=== PATIENT | female | born 1945 | race Caucasian/White ===

== ENCOUNTER 2019-10-20 12:54 | Outpatient (CLI) | payer MEDICARE, SELFPAY ==
--- NOTE | ~2019-10-20 | XR_ITS ---
EXAMINATION: XR abdomen/kub 1V INDICATION: Left-sided kidney stone TECHNIQUE: Supine view of the abdomen is obtained COMPARISON: 12/05/2017 FINDINGS: A pain pump projects over the left kidney obscuring evaluation for stones. No right nephrol ithiasis is identified. No stones are seen along the expected courses of the ureters or within the bl adder. A left pelvic phlebolith is noted. The bowel gas pattern is normal. There is mild osteoarthrit is of the hips. IMPRESSION: 1. Incomplete evaluation for left kidney stone due to overlying pain pump. No urolithiasis identified . Reviewed, dictated and finalized at location A. IMPRESSION: 1. Incomplete evaluation for left kidney stone due to overlying pain pump. No u rolithiasis identified.
== END 2019-10-20 12:55 | disposition home or self-care (01) ==
LOC: ANHIMG 13:02
PROVIDERS: PCP Family Medicine; Visit Provider Urology
DX: N20.0 Calculus of kidney (principal)
CPT/HCPCS: 74018

== ENCOUNTER 2020-09-08 09:00 | Outpatient (CLI) | payer MEDICARE, SELFPAY ==
--- NOTE | ~2020-09-08 | CT_ITS ---
EXAMINATION: CT lumbar spine wo [facility] EXAM DATE: 09/08/2020 09:27 INDICATION: Back pain/ radiculopathy . Coccygeal pain. TECHNIQUE: Spiral CT of the lumbar spine was performed without contrast. Axial, coronal and sagittal images lumbar spine were reviewed. The dose-length product (DLP) for this examination was 494.01 mG y-cm. The exposure was tailored according to patient size (auto mA exposure control), and iterative reconstruction (ASIR) was used as additional dose reduction technique. Correlation is made to lumbar MRI examination 2018. FINDINGS: There is pain pump with tip entering at L2-3, collimated off the top of the study. There is mild thoracolumbar levoscoliosis. Moderate to severe loss of the disc height L1-2, L2-3 and L5-S1 mild at the other lumbar levels. There is a subacute right-sided sacral all of fracture, probably ins ufficiency fracture. Some sclerosis indicating healing response. There is 2 mm retrolisthesis L2 on L 3. Cholecystectomy clips. Level by level evaluation: T12-L1: Disc does not extend beyond the endplate margin. Facet arthropathy: Mild left. Neural foraminal stenosis: No stenosis. Central canal stenosis: No stenosis. L1-L2: There is a mild diffuse disc bulge. Facet arthropathy: Minimal bilateral. Neural foraminal stenosis: No stenosis. Central canal stenosis: No stenosis. L2-L3: There is a mild to moderate diffuse disc bulge. Facet arthropathy: Mild. Neural foraminal stenosis: Mild bilateral. Central canal stenosis: Mild. L3-L4: There is a mild to moderate diffuse disc bulge. Facet arthropathy: Mild to moderate. Neural foraminal stenosis: Mild bilateral. Central canal stenosis: Mild. L4-L5: There is a moderate diffuse disc bulge. Facet arthropathy: Moderate to severe. Neural foraminal stenosis: Mild to moderate bilateral. Central canal stenosis: Mild to moderate. L5-S1: There is a mild to moderate diffuse disc bulge. Facet arthropathy: Moderate to severe. Neural foraminal stenosis: Moderate left, mild to moderate right. Central canal stenosis: Mild. IMPRESSION: 1. Subacute right sacral nondisplaced fracture probably insufficiency fracture. 2. Moderate to severe lower lumbar facet arthropathy. Spondylosis as above. Reviewed, dictated and finalized at location B. IMPRESSION: 1. Subacute right sacral nondisplaced fracture probably insufficiency fracture . 2. Moderate to severe lower lumbar facet arthropathy. Spondylosis as above.
== END 2020-09-08 09:01 | disposition home or self-care (01) ==
PROVIDERS: PCP Family Medicine
DX: M53.3 Sacrococcygeal disorders, not elsewhere classified (principal); M47.896 Other spondylosis, lumbar region
CPT/HCPCS: 72131

== ENCOUNTER 2021-01-24 13:01 | Emergency (ER) | payer MEDICARE, SELFPAY ==
[2021-01-24] VITALS (25 sets, daily range): BP systolic 114–158; BP diastolic 51–92; PULSE 67–85; RESP 12–25; TEMP 37.2; O2SAT 92–99
--- NOTE | ~2021-01-24 | CT_ITS ---
EXAMINATION: CT brain wo [facility] EXAM DATE: 01/24/2021 14:20 INDICATION: Nausea vomiting, altered mental status. TECHNIQUE: Spiral CT of the head was performed without contrast. Axial, coronal and sagittal images were reviewed. The dose-length product (DLP) for this examination was 605.33 mGy-cm. The exposure w as tailored according to patient size, and iterative reconstruction (ASIR) was used as additional dos e reduction technique. There is no prior study for comparison. FINDINGS: There is no acute intraparenchymal hemorrhage. No evidence of intraparenchymal brain mass lesion. No evidence of acute infarction. Please note that initial head CT has limited sensitivity f or small or acute infarctions. There is moderate periventricular and subcortical hypodensity, nonspec ific but probably related to small vessel ischemic disease. There is moderate prominence of the sul ci and ventricles related to cerebral atrophy. There is intracranial carotid arteriosclerosis. The re are no extra-axial collections. There is no mass effect or midline shift. The orbits are unremar kable. Soft tissue is unremarkable. The visualized sinuses and mastoid air cells are well aerated. IMPRESSION: 1. No acute intracranial findings. 2. Chronic age related findings. Reviewed, dictated and finalized at location A. E WORKER
--- NOTE | 2021-01-24 13:08 | ECG_ITS ---
Measurements Intervals [place] Rate: 70 P: 84 CA: 173 QRS: 53 QRSD: 84 T: 43 QT: 343 QTc: 371 Interpretive Statements SINUS RHYTHM DELAYED PRECORDIAL R/S TRANSITION BORDERLINE T WAVE ABNORMALITY- INFERIOR LEADS BASELINE ARTIFACT- II, III, AVF, V3-V6 BORDERLINE ECG Electronically Signed On 01-24-2021 13:45:34 [employer] REPAIR[employer] by Lopez Silveira D.O.
--- NOTE | 2021-01-24 13:30 | PC.NURSE ---
Pt's spouse says pt has severe chronic pain. He reports pt always has some confusion but she is normally much more alert than she is today. He reports pt was complaining of severe pain this morning. She refused her gabapentin and has not taken it in 12-24 hours. He does reports she was agreeable to taking her medical marijuana this morning. Pt is A&O x1. Will answer questions and follow commands. Pt denies recent fall or injury.
[2021-01-24] MEDS: ONDANSETRON INJ 4 MG/2 ML VIAL IV PUSH (14:03)
[2021-01-24] MEDS: SODIUM CHLORIDE 0.9% IV 1,000 ML 999 ML IV CONT (14:03)
[2021-01-24 14:08] LABS: Basophils Percent Auto 0.3 % (0.2-1.2); Eosinophils Percent Auto 0.1 % (0-4.4); Hematocrit 43.7 % (37.0-47.0); Hemoglobin 14.7 g/dL (12.0-15.0); Immature Granulocyte Absolute 0.03 K/mm3 (0.00-0.031); Immature Granulocyte Percent A 0.3 % (0-0.5); Lymphocytes Absolute Auto 0.83 K/mm3 (0.9-3.2); Lymphocytes Percent Auto 9.2 % (18.3-44.2); Mean Corpuscular HGB Conc 33.6 g/dl (32-36); Mean Corpuscular Hemoglobin 30.6 pg (26-34); Mean Corpuscular Volume 90.9 fl (80-100); Monocytes Absolute Auto 0.3 K/mm3 (0.1-0.6); Monocytes Percent Auto 3.5 % (2.6-8.5); Neutrophils Absolute Auto 7.8 K/mm3 (1.3-6.7); Neutrophils Percent Auto 86.6 % (45.5-73.1); Platelet Count Result 301 k/mm3 (150-375); Red Blood Count 4.81 M/mm3 (4.2-5.4); Red Cell Distribution Width 12.8 % (11.5-14.5)
--- NOTE | 2021-01-24 14:17 | PC.NURSE ---
Pt to radiology.
--- NOTE | 2021-01-24 14:20 | ED.GENADULT ---
HPI - General Adult General Chief complaint: Altered Mental Status Stated complaint: Altered Mental Status Time Seen by Provider: 01/24/21 13:19 Source: patient and family History of Present Illness HPI narrative: Patient is a 75 y/o female brought in for altered mental status and vomiting. states that patient kept repeating same thing earlier today. She also vomited 3 times today. She is currently awake and alert. She complains of chronic back pain. She has a pain pump for her chronic pain. reports that she did not take her Gabapentin today. Related Data Home Medications Medication Instructions Recorded Confirmed cyanocobalamin (vitamin B-12) 1,000 mcg PO DAILY 04/02/19 01/10/21 1,000 mcg tablet vitamin E (dl, acetate) 180 mg 400 unit PO DAILY 04/02/19 01/10/21 (400 unit) capsule Dilaudid CONTINUOUS EPIDURAL 08/06/19 01/10/21 clonidine CONTINUOUS EPIDURAL 08/06/19 01/10/21 cholecalciferol (vitamin D3) 50 2,000 unit PO DAILY cap 08/04/20 01/10/21 mcg (2,000 unit) capsule Allergies Allergy/AdvReac Type Severity Reaction Status Date / Time No Known Allergies Allergy Verified 01/24/21 13:13 Review of Systems Constitutional: Constitutional: Denies chills, Denies fever(s), Denies headache(s) and Denies weakness Eyes: Eyes: Denies blurry vision ENT: Denies headache(s) and Denies neck pain Cardiovascular: Cardiovascular: Denies chest pain and Denies dyspnea Respiratory: Respiratory: Denies cough and Denies dyspnea Gastrointestinal: Gastrointestinal: Denies abdominal pain, Denies diarrhea, Reports nausea and Reports vomiting Genitourinary: Genitourinary: Denies hematuria and Denies dysuria Musculoskeletal: Musculoskeletal: Reports back pain and Denies neck pain Neurologic: Denies headache(s) and Denies weakness [facility] Past Medical History Medical History Abnormal fasting glucose Arthritis BMI 26.0-26.9,adult Chronic anxiety COPD (chronic obstructive pulmonary disease) Depression GERD (gastroesophageal reflux disease) Impaired glucose metabolism Insomnia Memory deficit Tardive dyskinesia Vitamin B12 deficiency anemia Vitamin D deficiency, unspecified Surgical History Surgical History H/O neck surgery Hx of cholecystectomy Previous back surgery Family History Family History Father Family history of heart disease in male family member before age 55 Mother Family history of heart disease in male family member before age 55 Social History Social History Smoking status: Former smoker Alcohol intake: never Substance use: never Substance use type: does not use Gender identity (if verbalized by the patient): Female Exam Const: General: no acute distress and well developed Orientation/consciousness: oriented to person, oriented to place, oriented to time and patient oriented x3 HENMT: Head: normocephalic Ears: external ears normal General nose exam: Normal external nose present Eyes: General: appearance normal, both eyes and all related structures Conjunctivae: conjunctivae normal Neck: Neck: normal visual inspection and full ROM Chest: Chest palpation & inspection: normal inspection of the chest and no tenderness Resp: Effort & Inspection: normal respiratory effort Auscultation: clear to auscultation bilaterally Cardio: Rate: regular rate Rhythm: regular rhythm GI: GI Palp: No abdominal tenderness and Yes Soft to palpation Skin: General skin exam: normal color and turgor normal Neuro: General: oriented to person, oriented to place, oriented to time and patient oriented x3 Cognition (Neuro): normal cognition Extrem: General: normal to inspection, full ROM and no pedal edema Psych: Appearance: grossly normal Mental Status: mental status grossl
[2021-01-24 14:21] LABS: Alanine Aminotransferase 12 U/L (4-35); Albumin Level 4.2 g/dL (3.5-5.1); Alkaline Phosphatase 116 U/L (38-126); Anion Gap 7 mmol/L (8-16); Aspartate Amino Transferase 21 U/L (14-36); Bilirubin,Total 0.4 mg/dL (0.2-1.3); Blood Urea Nitrogen 8 mg/dL (7-17); Calcium 9.3 mg/dL (8.4-10.2); Carbon Dioxide 27 mmol/L (22-30); Chloride 102 mmol/L (98-107); Estimated Glomerular Filt Rate > 60; Glucose 144 mg/dL (65-110); Sodium 136 mmol/L (137-145)
--- NOTE | 2021-01-24 14:43 | PC.NURSE ---
Pt ambulatory to and from restroom. Pt unable to provide urine sample at this time.
--- NOTE | 2021-01-24 14:51 | PC.NURSE ---
Pt more alert and answering questions more appropriately. Disoriented to time. No complaints at this time.
--- NOTE | 2021-01-24 15:30 | PC.NURSE ---
Pt's at nurses station requesting pain medication for pt reporting she is in agonizing pain . RN went to bedside to assess pt. Pt unable to report being in any pain other than discomfort of straight catheterization she is currently undergoing. Dr. Haley made aware.
[2021-01-24 15:45] LABS: Add Urine Microscopic? YES; Appearance Urine Clear (Clear); Bilirubin Urine Negative (Negative); Blood Urine 1+ (Negative); Color Urine Straw (Yellow); Glucose Urine UA Negative (Negative); Ketones Urine Trace mg/dL (Negative); Leukocyte Esterase Ur Negative LEU/UL (Negative); Mucus Urine Rare /lpf; Nitrate Urine Negative (Negative); Protein Urine Negative (Negative); Specific Grav Ur 1.008 (1.001-1.035); Squamous Epithelial Cell Urine Rare /hpf (Few); Urobilinogen Urine Negative mg/dL (<2.0); WBC Urine 0-3 /hpf
--- NOTE | 2021-01-24 17:04 | PC.NURSE ---
Pt resting on stretcher. Family member at bedside. Awaiting further orders or disposition. Lab analyzer for urine drug screen down at this time. Dr. Tera carmen.
[2021-01-24 17:55] LABS: Barbiturate Screen Urine Negative (Negative); Benzodiazepines Screen Urine Negative (Negative)
[2021-01-24 17:56] LABS: Amphetamine Screen Urine Negative (Negative); Cannabinoid Screen Urine Positive (Negative); Cocaine Screen Urine Negative (Negative); Opiate Screen Urine Negative (Negative); Phencyclidine Screen Urine Negative (Negative)
[2021-01-24 18:16] LABS: Methadone Screen Urine Negative (Negative)
== END 2021-01-24 18:19 | disposition home or self-care (01) ==
PROVIDERS: Emergency Provider Emergency Medicine; PCP Family Medicine
DX: R41.82 Altered mental status, unspecified (principal); R11.2 Nausea with vomiting, unspecified; J44.9 Chronic obstructive pulmonary disease, unspecified; K21.9 Gastro-esophageal reflux disease without esophagitis; M19.90 Unspecified osteoarthritis, unspecified site; F32.9 Major depressive disorder, single episode, unspecified; E55.9 Vitamin D deficiency, unspecified; D51.9 Vitamin B12 deficiency anemia, unspecified; Z87.891 Personal history of nicotine dependence; Z79.899 Other long term (current) drug therapy
CPT/HCPCS: 36415; 51701; 70450; 80053; 80307; 81001; 85025; 93005; 96361; 96374; 99284; J2405; J7030

== ENCOUNTER 2023-09-09 10:17 | Inpatient (IN) | payer MEDICARE, SELFPAY ==
[2023-09-09] VITALS (24 sets, daily range): BP systolic 99–132; BP diastolic 46–68; PULSE 83–117; RESP 20–36; TEMP 36.2–37.7; O2SAT 84–100; BMI 22.8
--- NOTE | ~2023-09-09 | XR_ITS ---
MODIFIED ESOPHAGRAM HISTORY: Dysphagia. TECHNIQUE: Modified barium esophagram was performed on 09/10/2023. I administered fluoroscopy and perfo rmed the exam with speech pathologist. Patient was seated for lateral fluoroscopic imaging for inges tion of thin liquids, pudding, solids and quantified amounts, followed by thin liquids in uncontrolle d amounts. This was recorded on tape. A single fluoroscopic spot image was also recorded. The DAP for this procedure was 2.331 Gycm2. The amount of fluoroscopy time used during this procedure was 2.8 mi nutes. FINDINGS: Oral stage: Adequate function. Pharyngeal stage: Reduced laryngeal elevation and tongue base retraction. There is vallecular residue . There was laryngeal penetration with uncontrolled thin liquids. No aspiration. Cervical/esophageal stage: Adequate function. IMPRESSION: Pharyngeal dysphagia including laryngeal penetration with uncontrolled thin liquids witho ut aspiration. Please correlate with speech pathologist findings and specific feeding recommendation s. Reviewed, dictated and finalized at location A. IMPRESSION: Pharyngeal dysphagia including laryngeal penetration with uncontrol led thin liquids without aspiration. Please correlate with speech pathologist findings and specific feeding recommendations.
--- NOTE | ~2023-09-09 | XR_ITS ---
EXAMINATION: XR chest 2V DATE: 09/09/2023 11:07 INDICATION: Dyspnea. Right-sided weakness post stroke. TECHNIQUE: frontal view of the chest was obtained. COMPARISON: Chest radiograph dated 05/08/2016 FINDINGS: Indistinct interstitial opacities in the dependent lower lungs with more prominent on the right. No p leural effusion or pneumothorax. Heart size is normal. Bilateral breast implants with peripheral caps ular calcifications. Spinal stimulator leads extend cephalad along the posterior aspect of the centra l canal at the mid to lower thoracic spine with distal tip at the level of T8 and T9. Cholecystectomy clips in right upper quadrant. Pain pump projects over the anterior left upper quadrant with cathete r extending posteriorly to the region of the upper lumbar spine and beyond the inferior margin of the [id number]. IMPRESSION: 1. Dependent interstitial opacities in the bilateral lower lungs, right greater than left which could represent mild pulmonary edema, atelectasis or pneumonia. Reviewed, dictated and finalized at location A. IMPRESSION: 1. Dependent interstitial opacities in the bilateral lower lungs, right greater than left which could represent mild pulmonary edema, atelectasis or pneumonia .
--- NOTE | 2023-09-09 10:24 | ECG_ITS ---
Test Date: 2023-09-09 10:30:53 Measurements Intervals [place] Rate: 112 P: 80 RI: 139 QRS: 20 QRSD: 86 T: 66 QT: 302 QTc: 413 Interpretive Statements SINUS TACHYCARDIA POSSIBLE LEFT ATRIAL ENLARGEMENT DELAYED PRECORDIAL R/S TRANSITION CONSIDER INFERIOR INFARCT, AGE INDETERMINATE BORDERLINE T WAVE ABNORMALITY- ANTERIOR LEADS BASELINE ARTIFACT- II, AVR, AVL, AVF ABNORMAL ECG No previous ECG available for comparison Electronically Signed On 09-09-2023 15:06:15 CDT by Lopez Silveira D.O.
[2023-09-09 11:00] LABS: Basophils Absolute Auto 0.1 K/mm3 (0.0-0.1); Basophils Percent Auto 0.4 % (0.2-1.2); Eosinophils Absolute Auto 0.1 K/mm3 (0-0.3); Eosinophils Percent Auto 0.6 % (0-4.4); Hemoglobin 13.7 g/dL (12.0-15.0); Immature Granulocyte Absolute 0.08 K/mm3 (0.00-0.031); Immature Granulocyte Percent A 0.4 % (0-0.5); Lymphocytes Absolute Auto 1.25 K/mm3 (0.9-3.2); Mean Corpuscular HGB Conc 32.6 g/dl (32-36); Mean Corpuscular Hemoglobin 29.5 pg (26-34); Mean Corpuscular Volume 90.3 fl (80-100); Mean Platelet Volume 9.3 fl (7.4-10.4); Monocytes Absolute Auto 1.1 K/mm3 (0.1-0.6); Monocytes Percent Auto 5.9 % (2.6-8.5); Neutrophils Absolute Auto 15.3 K/mm3 (1.3-6.7); Neutrophils Percent Auto 85.7 % (45.5-73.1); Platelet Count Result 339 k/mm3 (150-375); Red Blood Count 4.65 M/mm3 (4.2-5.4); Red Cell Distribution Width 13.6 % (11.5-14.5); White Blood Count 17.9 K/mm3 (4.5-10.0)
[2023-09-09 11:12] LABS: Alanine Aminotransferase 14 U/L (6-35); Albumin Level 4.3 g/dL (3.5-5.1); Alkaline Phosphatase 117 U/L (38-126); Anion Gap 13 mmol/L (4-12); Aspartate Amino Transferase 21 U/L (14-36); Bilirubin,Total 1.3 mg/dL (0.2-1.3); Blood Urea Nitrogen 13 mg/dL (7-17); Calcium 8.9 mg/dL (8.4-10.2); Carbon Dioxide 28 mmol/L (22-30); Chloride 96 mmol/L (98-107); Estimated Glomerular Filt Rate > 60; Glucose 119 mg/dL (65-110); Lactic Acid Reflex 1.5 mmol/L (0.7-2.0); Sodium 137 mmol/L (137-145)
[2023-09-09 11:33] LABS: Carboxyhemoglobin 0.7 % THb (0-2.0); Fractional Inspired Oxygen 80 %; HCO3 ABG 24.1 mEq/l (22.0-26.0); Methemoglobin ABG 0.4 %THb (0-1.5); Oxygen Content ABG 20.6 %vol (16.0-22.0); Oxygen Saturation ABG 99.4 % (95.0-100.0); Oxyhemoglobin 98.4 % THb (90.0-100.0); PCO2 ABG 37.9 mmHg (35.0-45.0); PO2 ABG 206.6 mmHg (80.0-100.0); PO2 FiO2 Ratio Arterial Blood 2.58 %; Reduced Hemoglobin 0.5 %THb (0-5.0); Total Hemoglobin 14.6 g/dL (12.0-18.0); pH ABG 7.422 (7.350-7.450)
[2023-09-09 11:37] LABS: Device NASAL CANNULA; Modified Allen's Test Pass; Site Drawn LEFT RADIAL
[2023-09-09] MEDS: AZITHROMYCIN 500 MG/NS 250 ML 500 MG/250 ML BAG 250 MG IVPB (11:58)
--- NOTE | 2023-09-09 12:50 | ED_ITS ---
HPI - SOB/Dyspnea General Chief Complaint: Shortness of Breath/Dyspnea Stated Complaint: fever, cough - productive Time Seen by Provider: 09/09/23 10:23 History of Present Illness HPI Narrative: Patient is 78-year-old female with history of CVA with expressive aphasia who presents to the ER with concerns for pneumonia. Patient with new fever and cough. She is found be hypoxic for EMS. She is requiring supplemental oxygen. Patient unable to provide history. Related Data Home Medications Medication Instructions Recorded Confirmed cyanocobalamin (vitamin B-12) 1,000 mcg PO DAILY 04/02/19 09/09/23 1,000 mcg tablet (Vitamin B-12) vitamin E (dl, acetate) 180 mg 400 unit PO DAILY 04/02/19 09/09/23 (400 unit) capsule Dilaudid continuous epidural 08/06/19 07/30/23 clonidine continuous epidural 08/06/19 07/30/23 cholecalciferol (vitamin D3) 50 2,000 unit PO DAILY 08/04/20 09/09/23 mcg (2,000 unit) capsule famotidine 20 mg tablet 20 mg PO QHS 07/30/23 09/09/23 alprazolam 0.25 mg tablet (Xanax) 25 mg PO DAILY PRN anxiety 09/09/23 09/09/23 aripiprazole 10 mg tablet 10 mg PO HS 09/09/23 09/09/23 oxycodone 5 mg tablet 5 mg PO Q6H PRN pain 09/09/23 09/09/23 Allergies Allergy/AdvReac Type Severity Reaction Status Date / Time No Known Allergies Allergy Verified 08/09/22 10:51 Review of Systems Review of Systems: ROS unobtainable: Yes unobtainable due to mental status [facility] Past Medical History Medical History Abnormal fasting glucose Glucose 96 with hemoglobin A1c 5.6 on 12/13/2021. Arthritis At high risk for falls At moderate risk for fall (~01/15/23) BMI 23.0-23.9, adult BMI 24.0-24.9, adult BMI 25.0-25.9,adult BMI 26.0-26.9,adult Chronic anxiety Chronic constipation Chronic diarrhea COPD (chronic obstructive pulmonary disease) COVID-19 (01/13/22) fully vaccinated, tested positive 01/14/2022. 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 Impaired glucose metabolism Insomnia Memory deficit cognitive screening 03/0212/15/2022. Overweight (BMI 25.0-29.9) Pain of both breasts Right leg pain Tardive dyskinesia UTI (urinary tract infection) Vitamin B12 deficiency anemia Level greater than 2000 with hemoglobin 13.6 on 12/13/2021. Vitamin D deficiency, unspecified Surgical History Surgical History H/O neck surgery Hx of cholecystectomy Previous back surgery Family History Family History Father Family history of heart disease in male family member before age 55 Mother Family history of heart disease in male family member before age 55 Social History Social History Smoking packs per day: 1 Smoking cigarettes per day: 20.0 Years smoked: 55 Smoking pack-years: 55.00 Smoking status: Former smoker Tobacco type: cigarettes Alcohol intake: never Substance use: never Substance use type: does not use Lack of Transportation: No Lack of Food: Never True Current Housing: I Have Housing Concerned About Future Housing: No Difficulty Paying Gas/Electric Bills: No Difficulty Paying for Meds: No Currently Unemployed: No Education: Associate Degree Difficulty w/ Childcare or Family Care: No Living arrangements: with family Occupation/Education: retired Gender identity (if verbalized by the patient): Female Spiritual care concerns: No Exam Narrative: GENERAL: Chronically ill-appearing, well-nourished, and in no acute distress. HEAD: Normocephalic, atraumatic. ENT: Mucous membranes moist. CHEST: Clear to auscultation. No respiratory distress. HEART: Tachycardic and regular. Normal peripheral pulses. ABDOMEN: Soft, nontender, nondistended. EXTREMITIES: Normal range of motion. No edema. SKIN: Warm, dry, no rash. NEURO: Awake and alert. PSYCH: Normal mood and affect. Course Course Emergency Course: patients family has been informed of results and treatment plan. Admit to hospitalist service. IV antibiotics started. Patient on 5 L of oxygen. Vital Signs Vital signs: Vital Signs Temperature 99.8 F H 09/09/23 10:15 Pulse Rate 117 H 09/09/23 10:15 Respiratory Rate 22 H 09/09/23 10:15 Blood Pressure 116/62 09/09/23 10:15 Pulse Oximetry 98 09/09/23 10:15 Oxygen Delivery Room Air 09/09/23 10:15 Temperature 97.1 F L 09/09/23 16:00 Pulse Rate 92 09/09/23 18:00 Respiratory Rate 20 09/09/23 16:14 Blood Pressure 104/48 L 09/09/23 16:00 Pulse Oximetry 96 09/09/23 16:00 Oxygen Delivery Nasal Cannula 09/09/23 16:00 Oxygen Flow Rate 5 09/09/23 16:00 MDM - SOB/Dyspnea Lab Data 09/09/23 10:50 09/09/23 10:50 Labs: Lab Results 09/09/23 09/09/23 Range/Units 10:50 11:08 WBC 17.9 H (4.5-10.0) K/mm3 RBC 4.65 (4.2-5.4) M/mm3 Hgb 13.7 (12.0-15.0) g/dL Hct 42.0 (37.0-47.0) % MCV 90.3 (80-100) fl MCH 29.5 (26-34) pg MCHC 32.6 (32-36) g/dl RDW 13.6 (11.5-14.5) % Plt Count 339 (150-375) k/mm3 MPV 9.3 (7.4-10.4) fl Immature Gran % (Auto) 0.4 (0-0.5) % Neut % (Auto) 85.7 H (45.5-73.1) % Lymph % (Auto) 7.0 L (18.3-44.2) % [place] % (Auto) 5.9 (2.6-8.5) % Eos % (Auto) 0.6 (0-4.4) % Baso % (Auto) 0.4 (0.2-1.2) % Lymph # (Auto) 1.25 (0.9-3.2) K/mm3 [place] # (Auto) 1.1 H (0.1-0.6) K/mm3 Eos # (Auto) 0.1 (0-0.3) K/mm3 Baso # (Auto) 0.1 (0.0-0.1) K/mm3 Abs Immat Gran (auto) 0.08 H (0.00-0.031) K/mm3 Absolute Neuts (auto) 15.3 H (1.3-6.7) K/mm3 Absolute Nucleated RBC 0.000 (0.0-0.012) K/mm3 Nucleated RBC % 0.0 (0.0-0.2) % Methemoglobin 0.4 (0-1.5) %THb Sodium 137 (137-145) mmol/L Potassium 4.0 (3.4-5.0) mmol/L Chloride 96 L (98-107) mmol/L Carbon Dioxide 28 (22-30) mmol/L Anion Gap 13 H (4-12) mmol/L BUN 13 D (7-17) mg/dL Creatinine 0.80 (0.7-1.0) mg/dL Estim Creat Clear Calc Not Reportable Estimated GFR > 60 (59 - ) Glucose 119 H (65-110) mg/dL Lactic Acid 1.5 (0.7-2.0) mmol/L Calcium 8.9 (8.4-10.2) mg/dL Total Bilirubin 1.3 (0.2-1.3) mg/dL AST 21 (14-36) U/L ALT 14 (6-35) U/L Alkaline Phosphatase 117 (38-126) U/L Total Protein 8.0 (6.3-8.2) g/dL Albumin 4.3 (3.5-5.1) g/dL ABG Data ABG results: 09/09/23 11:08 Puncture Site Left radial ABG pH 7.422 ABG pCO2 37.9 ABG pO2 206.6 H ABG PO2/FiO2 Ratio 2.58 ABG HCO3 24.1 ABG O2 Saturation 99.4 ABG O2 Content 20.6 ABG Base Excess 0.0 A-a Gradient 324.0 Oxyhemoglobin 98.4 Carboxyhemoglobin 0.7 Reduced Hemoglobin 0.5 Total Hemoglobin 14.6 O2 Delivery Device Nasal cannula O2 Liters/Min 15.0 FiO2 80 Imaging Data Radiologist's impression: ITS Impressions Chest X-Ray 09/09/23 11:14 IMPRESSION: 1. Dependent interstitial opacities in the bilateral lower lungs, right greater than left which could represent mild pulmonary edema, atelectasis or pneumonia. Discharge Plan Discharge Clinical Impression: Pneumonia, Hypoxia Patient Disposition: Still a Patient Condition: Stable
[2023-09-09] MEDS: SODIUM CHLORIDE 0.9% IV 1,000 ML 125 ML IV CONT ×2 (13:43→22:07)
--- NOTE | 2023-09-09 14:19 | ADMGEN ---
This patient, Kimberlyn Galindo, was admitted to IMU Room 231-01. Patient/family oriented to hospital policies and general routines including ID bracelet, bed and alarms, visiting hours, pain management, procedures, bathroom and other care routines, personal items, smoking policy, room service/diet, and visiting hours. Information on how to activate the Rapid Response Team has been discussed. Patient/Family are encouraged to report perceived risks to care and to ask questions if they do not understand what they are told or what they should do.
[2023-09-09] MEDS: IPRATROPIUM 0.5 MG/ALBUTEROL SULFATE 2.5 MG AMPUL.NEB 3 ML INHALATION ×2 (16:02→21:00)
[2023-09-09] MEDS: HYDROcodone/acetaminophen (*CRX) 5-325 MG TABLET 1 TAB PO (17:01)
--- NOTE | 2023-09-09 17:42 | P.HP_ITS ---
H&P: HPI History of Present Illness Date/Time: 09/09/23 17:42 Chief Complaint: Shortness of breath/dyspnea Narrative: This is a 78-year-old female with a significant past medical history of anxiety, COPD, depression, GERD, CVA with right-sided weakness and aphasia, vitamin B12 and vitamin-D deficiency who presents to the hospital for evaluation of shortness of breath/dyspnea. Patient is a poor historian and most her history of presenting illness was obtained from the EMR. Patient denies any fever, chills, nausea, vomiting, diarrhea, abdominal pain, chest pain, shortness a breath. Workup in the hospital included a chest x-ray which shown dependent interstitial opacities in the bilateral lower lung zones right greater than left which could be pulmonary edema versus pneumonia. Initial labs showed a white blood cell count of 17.9, lactic acid was 1.5, ABG showing a PO2 of 206.6 on 15 L nasal cannula. Blood cultures were obtained and are pending EKG showed sinus tach with a rate of 112, QTC 413. Patient was started on Rocephin and azithromycin while in the ED. Review of Systems Review of Systems: All systems reviewed & are unremarkable except as noted in HPI and below Constitutional: Constitutional: Reports as per HPI and Reports no additional constitutional complaints Eyes: Eyes: Reports as per HPI and Reports no additional eye complaints ENT: Reports system reviewed and no additional complaints, except as documented and Reports as per HPI Cardiovascular: Cardiovascular: Reports as per HPI and Reports no additional cardiovascular complaints Respiratory: Respiratory: Reports as per HPI and Reports no additional respiratory complaints Gastrointestinal: Gastrointestinal: Reports as per HPI and Reports no additional gastrointestinal complaints Genitourinary: Genitourinary: Reports no additional female genitourinary complaints and Reports as per HPI Musculoskeletal: Musculoskeletal: Reports no additional musculoskeletal complaints and Reports as per HPI Integumentary/Breasts: Skin/Breast: Reports system reviewed and no additional complaints, except as docu and Reports as per HPI Neurologic: Reports system reviewed and no additional complaints, except as documented and Reports as per HPI Psychiatric: Psychiatric: Reports no additional psychiatric complaints and Reports as per HPI [facility] Past Medical History Medical History Abnormal fasting glucose Glucose 96 with hemoglobin A1c 5.6 on 12/13/2021. Arthritis At high risk for falls At moderate risk for fall (~01/15/23) BMI 23.0-23.9, adult BMI 24.0-24.9, adult BMI 25.0-25.9,adult BMI 26.0-26.9,adult Chronic anxiety Chronic constipation Chronic diarrhea COPD (chronic obstructive pulmonary disease) COVID-19 (01/13/22) fully vaccinated, tested positive 01/14/2022. Depression Fever blister GERD (gastroesophageal reflux disease) Hemorrhagic cerebrovascular accident (CVA) (~01/20/23) left temporal hemorrhagic stroke with aphasia treated at [facility] 01/20/2023. Impaired glucose metabolism Insomnia Memory deficit cognitive screening 03/0212/15/2022. Overweight (BMI 25.0-29.9) Pain of both breasts Right leg pain Tardive dyskinesia UTI (urinary tract infection) Vitamin B12 deficiency anemia Level greater than 2000 with hemoglobin 13.6 on 12/13/2021. Vitamin D deficiency, unspecified Surgical History Surgical History H/O neck surgery Hx of cholecystectomy Previous back surgery Family History Family History Father Family history of heart disease in male family member before age 55 Mother Family history of heart disease in male family member before age 55 Social History Social History Smoking packs per day: 1 Smoking cigarettes per day: 20.0 Years smoked: 55 Smoking pack-years: 55.00 Smoking status: Former smoker Tobacco type: cigarettes Alcohol intake: never Substance use: never Substance use type: does not use Lack of Transportation: No Lack of Food: Never True Current Housing: I Have Housing Concerned About Future Housing: No Difficulty Paying Gas/Electric Bills: No Difficulty Paying for Meds: No Currently Unemployed: No Education: Associate Degree Difficulty w/ Childcare or Family Care: No Living arrangements: with family Occupation/Education: retired Gender identity (if verbalized by the patient): Female Spiritual care concerns: No Meds Home Medications and Allergies Home Medications Medication Instructions Recorded Confirmed Type cyanocobalamin (vitamin B-12) 1,000 mcg PO DAILY 04/02/19 09/09/23 History 1,000 mcg tablet (Vitamin B-12) vitamin E (dl, acetate) 180 mg 400 unit PO DAILY 04/02/19 09/09/23 History (400 unit) capsule Dilaudid continuous epidural 08/06/19 07/30/23 History clonidine continuous epidural 08/06/19 07/30/23 History cholecalciferol (vitamin D3) 50 2,000 unit PO DAILY 08/04/20 09/09/23 History mcg (2,000 unit) capsule nebulizers (Altera Nebulizer #1 ea 06/13/23 07/30/23 Rx System) gabapentin 300 mg capsule 300 mg PO TID #270 caps 07/04/23 09/09/23 Rx famotidine 20 mg tablet 20 mg PO QHS 07/30/23 09/09/23 History mirtazapine 30 mg tablet 30 mg PO QHS #90 tabs 07/30/23 09/09/23 Rx alprazolam 0.25 mg tablet (Xanax) 25 mg PO DAILY PRN anxiety 09/09/23 09/09/23 History aripiprazole 10 mg tablet 10 mg PO HS 09/09/23 09/09/23 History oxycodone 5 mg tablet 5 mg PO Q6H PRN pain 09/09/23 09/09/23 History Allergies Allergy/AdvReac Type Severity Reaction Status Date / Time No Known Allergies Allergy Verified 08/09/22 10:51 Vital Signs Vital Signs - 24 hr 09/09/23 10:15 09/09/23 10:32 09/09/23 10:32 Temperature 99.8 F H Pulse Rate 117 H Respiratory Rate 22 H Blood Pressure 116/62 Pulse Oximetry 98 84 L 91 Oxygen Delivery Room Air Room Air Non-Rebreather Mask Oxygen Flow Rate 09/09/23 10:24 09/09/23 10:24 09/09/23 10:23 Temperature Pulse Rate 101 H 114 H Respiratory Rate 36 H Blood Pressure 116/62 Pulse Oximetry 100 92 Oxygen Delivery Non-Rebreather Mask Oxygen Flow Rate 09/09/23 10:31 09/09/23 10:50 09/09/23 11:09 Temperature Pulse Rate 110 H 104 H 105 H Respiratory Rate 35 H 23 H 28 H Blood Pressure 99/46 L 101/67 117/67 Pulse Oximetry 94 100 100 Oxygen Delivery Oxygen Flow Rate 09/09/23 11:15 09/09/23 11:30 09/09/23 13:00 Temperature Pulse Rate 105 H 102 H 101 H Respiratory Rate 35 H 34 H 22 H Blood Pressure 112/64 Pulse Oximetry 100 100 98 Oxygen Delivery Oxygen Flow Rate 09/09/23 13:42 09/09/23 12:00 09/09/23 14:26 Temperature 98.7 F Pulse Rate 102 H 112 H Respiratory Rate 24 H 26 H Blood Pressure 121/68 132/56 L Pulse Oximetry 98 98 97 Oxygen Delivery Non-Rebreather Mask Oxygen Flow Rate 5 09/09/23 16:02 09/09/23 16:14 09/09/23 16:00 Temperature 97.1 F L Pulse Rate 99 95 96 Respiratory Rate 20 20 22 H Blood Pressure 104/48 L Pulse Oximetry 96 Oxygen Delivery Oxygen Flow Rate Exam Narrative: General: In no acute distress, well nourished Head: atraumatic, no encephalopathy Eyes: EOMI, PERRLA, sclera clear ENT: moist mucous membranes, nasal passages clear Neck: supple, no JVD, no adenopathy, trachea midline Cardiac: Normal S1 and S2. No murmur, gallops or friction rubs, peripheral pulses intact. Respiratory: Lungs clear to auscultation, no adventitious lung sounds, currently on 5 L nasal cannula Gastrointestinal: soft, non-distended, non-tender, normoactive bowel sounds. : voiding without difficulty. Extremities: moves all extremities well, no edema, good ROM, strength 5/5 Skin: clean, dry, intact. No wounds or lesions. Neuro: Alert and oriented x4, cranial nerves intact, no neuro deficits. Psych: normal mood, normal affect, interactive H&P: Results Labs Labs: Short CBC 09/09/23 Range/Units 10:50 WBC 17.9 H (4.5-10.0) K/mm3 Hgb 13.7 (12.0-15.0) g/dL Hct 42.0 (37.0-47.0) % Plt Count 339 (150-375) k/mm3 BMP 09/09/23 10:50 Sodium 137 Potassium 4.0 Chloride 96 L Carbon Dioxide 28 BUN 13 D Creatinine 0.80 Glucose 119 H Calcium 8.9 Liver Function 09/09/23 Range/Units 10:50 Total Bilirubin 1.3 (0.2-1.3) mg/dL AST 21 (14-36) U/L ALT 14 (6-35) U/L Alkaline Phosphatase 117 (38-126) U/L Albumin 4.3 (3.5-5.1) g/dL Imaging Chest x-ray: Radiologist's impression: EXAMINATION: XR chest 2V DATE: 09/09/2023 11:07 INDICATION: Dyspnea. Right-sided weakness post stroke. TECHNIQUE: frontal view of the chest was obtained. COMPARISON: Chest radiograph dated 05/08/2016 FINDINGS: Indistinct interstitial opacities in the dependent lower lungs with more prominent on the right. No pleural effusion or pneumothorax. Heart size is normal. Bilateral breast implants with peripheral capsular calcifications. Spinal stimulator leads extend cephalad along the posterior aspect of the central canal at the mid to lower thoracic spine with distal tip at the level of T8 and T9. Cholecystectomy clips in right upper quadrant. Pain pump projects over the anterior left upper quadrant with catheter extending posteriorly to the region of the upper lumbar spine and beyond the inferior margin of the [id number]. IMPRESSION: 1. Dependent interstitial opacities in the bilateral lower lungs, right greater than left which could represent mild pulmonary edema, atelectasis or pneumonia. Reviewed, dictated and finalized at location A. Assessment and Plan Assessment and plan (1) Sepsis: Code(s): A41.9 - Sepsis, unspecified organism Status: Acute Assessment and Plan: 09/09/23: * Initially meeting sepsis criteria with heart rate of 117, respiratory rate of 22, white blood cell count 17.9, with source of infection being pneumonia * Blood cultures were obtained and are pending * Patient started on Rocephin and azithromycin while in the ED * Lactic acid was 1.5 (2) Acute hypoxic respiratory failure: Code(s): J96.01 - Acute respiratory failure with hypoxia Status: Acute Assessment and Plan: * Likely secondary to community-acquired pneumonia * Chest x-ray showed dependent interstitial opacities in the bilateral lower lung zones right greater than the left representing either mild pulmonary edema versus pneumonia * WBC 17.9, T-max 99.8? * Continue Rocephin and azithromycin * DuoNebs q.6 hour * Continue to wean O2 for sat greater than 92% * Respiratory panel was negative for influenza a and B, RSV, COVID * Will check urine Legionella, urine strep, mycoplasma (3) Pneumonia: Code(s): J18.9 - Pneumonia, unspecified organism Status: Acute Assessment and Plan: See above plan of care (4) COPD (chronic obstructive pulmonary disease): Qualifiers: COPD type: unspecified COPD Qualified Code(s): J44.9 - Chronic obstructive pulmonary disease, unspecified Code(s): J44.9 - Chronic obstructive pulmonary disease, unspecified Status: Acute Assessment and Plan: See above plan of care (5) Bipolar affective disorder: Qualifiers: Active/Remission status: in partial remission Most recent bipolar episode type: mixed Qualified Code(s): F31.77 - Bipolar disorder, in partial remission, most recent episode mixed Code(s): F31.9 - Bipolar disorder, unspecified Status: Acute Assessment and Plan: 09/09/23: * Continue Abilify (6) CVA (cerebral vascular accident): Code(s): I63.9 - Cerebral infarction, unspecified Status: Acute Assessment and Plan: 09/09/23: * Right-sided weakness and aphasia at baseline Quality VTE Prophylaxis VTE prophylaxis: mechanical ordered Hospitalist MIPS Advance Care Plan I have confirmed that the patient's Advanced Care Plan is present, code status is documented, or surrogate decision maker is listed in patient medical record.: Yes Medication Reconciliation I have utilized all available resources to obtain, update and review the patients current medications (includes all prescriptions, OTC, herbals, canna bis, and nutritional supplements).: Yes
[2023-09-09] MEDS: WATER FOR IRRIGATION, STERILE 1,000 ML BOTTLE 1000 ML (18:21)
[2023-09-09] MEDS: GABAPENTIN 300 MG CAPSULE PO (20:17)
[2023-09-09] MEDS: FAMOTIDINE 20 MG TABLET PO (20:17)
[2023-09-09] MEDS: MIRTAZAPINE 30 MG TABLET PO (20:18)
[2023-09-09] MEDS: ARIPiprazole 5 MG TABLET PO (20:18)
[2023-09-09 21:27] LABS: Influenza A QL RT-PCR Negative (Negative); Influenza B QL RT-PCR Negative (Negative); RSV RNA, RT-PCR Negative (Negative); SARS-CoV-2 RNA PCR Negative (Negative)
[2023-09-10] VITALS (19 sets, daily range): BP systolic 95–145; BP diastolic 39–66; PULSE 70–104; RESP 14–22; TEMP 36.1–36.8; O2SAT 83–100
[2023-09-10] MEDS: IPRATROPIUM 0.5 MG/ALBUTEROL SULFATE 2.5 MG AMPUL.NEB 3 ML INHALATION ×3 (01:52→20:40)
[2023-09-10 04:12] LABS: Basophils Percent Auto 0.3 % (0.2-1.2); Eosinophils Percent Auto 0.4 % (0-4.4); Hematocrit 37.7 % (37.0-47.0); Hemoglobin 11.8 g/dL (12.0-15.0); Immature Granulocyte Absolute 0.05 K/mm3 (0.00-0.031); Immature Granulocyte Percent A 0.5 % (0-0.5); Lymphocytes Absolute Auto 1.16 K/mm3 (0.9-3.2); Lymphocytes Percent Auto 11.7 % (18.3-44.2); Mean Corpuscular HGB Conc 31.3 g/dl (32-36); Mean Corpuscular Hemoglobin 29.4 pg (26-34); Mean Corpuscular Volume 93.8 fl (80-100); Mean Platelet Volume 9.5 fl (7.4-10.4); Monocytes Absolute Auto 0.8 K/mm3 (0.1-0.6); Monocytes Percent Auto 8.2 % (2.6-8.5); Neutrophils Absolute Auto 7.8 K/mm3 (1.3-6.7); Neutrophils Percent Auto 78.9 % (45.5-73.1); Platelet Count Result 253 k/mm3 (150-375); Red Blood Count 4.02 M/mm3 (4.2-5.4); Red Cell Distribution Width 13.7 % (11.5-14.5); White Blood Count 9.9 K/mm3 (4.5-10.0)
[2023-09-10 04:28] LABS: Alanine Aminotransferase 10 U/L (6-35); Albumin Level 3.2 g/dL (3.5-5.1); Alkaline Phosphatase 91 U/L (38-126); Anion Gap 8 mmol/L (4-12); Aspartate Amino Transferase 18 U/L (14-36); Bilirubin,Total 0.7 mg/dL (0.2-1.3); Blood Urea Nitrogen 14 mg/dL (7-17); Calcium 8.5 mg/dL (8.4-10.2); Carbon Dioxide 25 mmol/L (22-30); Chloride 104 mmol/L (98-107); Estimated CRCL calculation 47 ml/min; Estimated Glomerular Filt Rate > 60; Glucose 117 mg/dL (65-110); Potassium 3.9 mmol/L (3.4-5.0); Sodium 137 mmol/L (137-145)
[2023-09-10] MEDS: GABAPENTIN 300 MG CAPSULE PO ×3 (06:19→21:11)
[2023-09-10] MEDS: CHOLECALCIFEROL 1,000 UNITS TABLET 2000 UNITS PO (10:15)
[2023-09-10] MEDS: AZITHROMYCIN 500 MG/NS 250 ML 500 MG/250 ML BAG 250 MG IVPB (10:15)
[2023-09-10] MEDS: CYANOCOBALAMIN 1,000 MCG TABLET 1000 MCG PO (10:16)
[2023-09-10] MEDS: VITAMIN E 400 UNIT CAPSULE PO (10:16)
--- NOTE | 2023-09-10 10:50 | P.PNIM_ITS ---
Progress Note: A&P Assessment and Plan (1) Sepsis: Code(s): A41.9 - Sepsis, unspecified organism Status: Acute Assessment and Plan: 09/09/23: * Initially meeting sepsis criteria with heart rate of 117, respiratory rate of 22, white blood cell count 17.9, with source of infection being pneumonia * Blood cultures were obtained and are pending * Patient started on Rocephin and azithromycin while in the ED * Lactic acid was 1.5 09/10/23: * Blood Cultures are still pending * Continue with Rocephin and azithromycin * White blood cell count down to 9.9, afebrile (2) Acute hypoxic respiratory failure: Code(s): J96.01 - Acute respiratory failure with hypoxia Status: Acute Assessment and Plan: 09/09/23: * Likely secondary to community-acquired pneumonia * Chest x-ray showed dependent interstitial opacities in the bilateral lower lung zones right greater than the left representing either mild pulmonary edema versus pneumonia * WBC 17.9, T-max 99.8? * Continue Rocephin and azithromycin * DuoNebs q.6 hour * Continue to wean O2 for sat greater than 92% * Respiratory panel was negative for influenza a and B, RSV, COVID * Will check urine Legionella, urine strep, mycoplasma 09/10/23: * Swallow study showing pharyngeal dysphagia including laryngeal penetration with uncontrolled thin liquids without aspiration, adequate function * [place] thick liquids and small bite size diet * Continue to wean O2 for sat greater than 92% * Urine strep, urine Legionella, and mycoplasma are pending * Continue DuoNeb * White blood cell count down to 9.9, afebrile * Continue Rocephin and azithromycin (3) Pneumonia: Code(s): J18.9 - Pneumonia, unspecified organism Status: Acute Assessment and Plan: See above plan of care (4) COPD (chronic obstructive pulmonary disease): Qualifiers: COPD type: unspecified COPD Qualified Code(s): J44.9 - Chronic obstructive pulmonary disease, unspecified Code(s): J44.9 - Chronic obstructive pulmonary disease, unspecified Status: Acute Assessment and Plan: See above plan of care (5) Bipolar affective disorder: Qualifiers: Active/Remission status: in partial remission Most recent bipolar episode type: mixed Qualified Code(s): F31.77 - Bipolar disorder, in partial remission, most recent episode mixed Code(s): F31.9 - Bipolar disorder, unspecified Status: Acute Assessment and Plan: 09/09/23: * Continue Abilify 09/10/23: * No change to current treatment plan (6) CVA (cerebral vascular accident): Code(s): I63.9 - Cerebral infarction, unspecified Status: Acute Assessment and Plan: 09/09/23: * Right-sided weakness and aphasia at baseline 09/10/23: * No change Time Spent With Patient Time with patient: 25 - 35 minutes Subjective Date/time seen: 09/10/23 10:50 Interval history: Interval history: This is a 78-year-old female with a significant past medical history of anxiety, COPD, depression, GERD, CVA with right-sided weakness and aphasia, vitamin B12 and vitamin-D deficiency who presents to the hospital for evaluation of shortness of breath/dyspnea. Patient is a poor historian and most her history of presenting illness was obtained from the EMR. Patient denies any fever, chills, nausea, vomiting, diarrhea, abdominal pain, chest pain, shortness a breath. Workup in the hospital included a chest x-ray which shown dependent interstitial opacities in the bilateral lower lung zones right greater than left which could be pulmonary edema versus pneumonia. Initial labs showed a white blood cell count of 17.9, lactic acid was 1.5, ABG showing a PO2 of 206.6 on 15 L nasal cannula. Blood cultures were obtained and are pending EKG showed sinus tach with a rate of 112, QTC 413. Patient was started on Rocephin and azithromycin while in the ED. 09/10/23: No new events over night. Nursing reported that she was having difficulty with swallowing this morning. Barium swallow study showed pharyngeal dysphasia including laryngeal penetration with uncontrolled thin liquids without aspiration, adequate function. Labs today show white blood cell count of 9.9, hemoglobin 11.8. Review of Systems Review of Systems: All systems reviewed & are unremarkable except as noted in HPI and below Constitutional: Constitutional: Reports as per HPI and Reports no additional constitutional complaints Eyes: Eyes: Reports as per HPI and Reports no additional eye complaints ENT: Reports system reviewed and no additional complaints, except as doc umented and Reports as per HPI Cardiovascular: Cardiovascular: Reports as per HPI and Reports no additional cardiovascular complaints Respiratory: Respiratory: Reports as per HPI and Reports no additional respiratory complaints Gastrointestinal: Gastrointestinal: Reports as per HPI and Reports no additional gastrointestinal complaints Genitourinary: Genitourinary: Reports no additional female genitourinary complaints and Reports as per HPI Musculoskeletal: Musculoskeletal: Reports no additional musculoskeletal complaints and Reports as per HPI Integumentary/Breasts: Skin/Breast: Reports system reviewed and no additional complaints, except as docu and Reports as per HPI Neurologic: Reports system reviewed and no additional complaints, except as documented and Reports as per HPI Psychiatric: Psychiatric: Reports no additional psychiatric complaints and Reports as per HPI Exam Narrative: General: In no acute distress, well nourished Cardiac: Normal S1 and S2. RRR, No murmur, gallops or friction rubs, peripheral pulses intact. Respiratory: Lungs clear to auscultation, no adventitious lung sounds, currently on 2 L nasal cannula Gastrointestinal: soft, non-distended, non-tender, normoactive bowel sounds. BM today Neuro: Awake and alert, expressive aphasia, dysphagia Objective Data Vital Signs Vital Signs: Vital Signs - 24 hr 09/09/23 11:09 09/09/23 11:15 09/09/23 11:30 Temperature Pulse Rate 105 H 105 H 102 H Respiratory Rate 28 H 35 H 34 H Blood Pressure 117/67 Pulse Oximetry 100 100 100 Oxygen Delivery Oxygen Flow Rate Fraction of Inspired Oxygen 09/09/23 13:00 09/09/23 13:42 09/09/23 12:00 Temperature Pulse Rate 101 H 102 H Respiratory Rate 22 H 24 H Blood Pressure 112/64 121/68 Pulse Oximetry 98 98 98 Oxygen Delivery Non-Rebreather Mask Oxygen Flow Rate 5 Fraction of Inspired Oxygen 09/09/23 14:26 09/09/23 16:02 09/09/23 16:14 Temperature 98.7 F Pulse Rate 112 H 99 95 Respiratory Rate 26 H 20 20 Blood Pressure 132/56 L Pulse Oximetry 97 Oxygen Delivery Oxygen Flow Rate Fraction of Inspired Oxygen 09/09/23 16:00 09/09/23 16:00 09/09/23 16:00 Temperature 97.1 F L Pulse Rate 96 98 Respiratory Rate 22 H Blood Pressure 104/48 L Pulse Oximetry 96 96 Oxygen Delivery Nasal Cannula Oxygen Flow Rate 5 Fraction of Inspired Oxygen 09/09/23 18:00 09/09/23 19:42 09/09/23 19:51 Temperature 97.6 F Pulse Rate 92 84 Respiratory Rate 20 Blood Pressure 110/46 L Pulse Oximetry 97 96 Oxygen Delivery Nasal Cannula Oxygen Flow Rate 5 Fraction of Inspired Oxygen 09/09/23 20:00 09/09/23 21:00 09/09/23 21:06 Temperature Pulse Rate 83 84 84 Respiratory Rate 20 Blood Pressure Pulse Oximetry 95 Oxygen Delivery Nasal Cannula Oxygen Flow Rate 6 Fraction of Inspired Oxygen 44 09/09/23 21:10 09/09/23 21:11 09/10/23 00:11 Temperature 97.7 F Pulse Rate 84 84 80 Respiratory Rate 20 20 Blood Pressure 102/44 L Pulse Oximetry 99 95 Oxygen Delivery Nasal Cannula Oxygen Flow Rate 5 Fraction of Inspired Oxygen 40 09/10/23 00:00 09/10/23 00:00 09/10/23 01:52 Temperature Pulse Rate 79 79 Respiratory Rate 18 Blood Pressure Pulse Oximetry 93 Oxygen Delivery Nasal Cannula Oxygen Flow Rate 4 Fraction of Inspired Oxygen 09/10/23 02:00 09/10/23 03:18 09/10/23 03:55 Temperature 97.7 F Pulse Rate 76 82 Respiratory Rate 18 20 Blood Pressure 108/49 L Pulse Oximetry 95 97 Oxygen Delivery Nasal Cannula Oxygen Flow Rate 5 Fraction of Inspired Oxygen 09/10/23 04:00 09/10/23 05:57 09/10/23 07:53 Temperature 97 F L Pulse Rate 81 77 76 Respiratory Rate 18 Blood Pressure 95/39 L Pulse Oximetry 99 Oxygen Delivery Oxygen Flow Rate Fraction of Inspired Oxygen 09/10/23 08:04 09/10/23 08:04 09/10/23 08:12 Temperature Pulse Rate 70 74 Respiratory Rate 14 14 Blood Pressure Pulse Oximetry 100 Oxygen Delivery High Flow Nasal Cannula Oxygen Flow Rate 6 Fraction of Inspired Oxygen 09/10/23 08:00 09/10/23 08:00 09/10/23 10:00 Temperature Pulse Rate 75 84 Respiratory Rate Blood Pressure Pulse Oximetry 98 Oxygen Delivery Nasal Cannula Oxygen Flow Rate 2 Fraction of Inspired Oxygen Intake/Output Intake/Output: Intake & Output 09/07/23 09/08/23 09/09/23 09/10/23 23:59 23:59 23:59 23:59 Intake Total 1360 350 Balance 1360 350 Meds/Results Medications: Active Medications Generic Name Dose Route Start Last Admin Trade Name Freq PRN Reason Stop Dose Admin Acetaminophen 650 mg 09/09/23 17:53 Acetaminophen 325 Mg Tablet PO Q4H PRN Mild Pain (1-3) or Fever Hydrocodone Bitart/Acetaminophen 1 tab 09/09/23 12:42 09/09/23 17:01 Hydrocodone/Acetaminophen (*Crx) 5-325 Mg Tablet PO 1 tab Q4H PRN Administration Pain Rated 4-6 Albuterol/Ipratropium 3 ml 09/09/23 14:00 09/10/23 08:03 Ipratropium 0.5 Mg/Albuterol Sulfate 2.5 Mg Ampul.Neb 3 Ml INHALATION 3 ml Q6HRT ALETA Administration Alprazolam 25 mg 09/09/23 17:55 Alprazolam (*Crx) 0.5 Mg Tablet PO DAILY PRN anxiety Aripiprazole 5 mg 09/09/23 21:00 09/09/23 20:18 Aripiprazole 5 Mg Tablet PO 5 mg HS ALETA Administration Cyanocobalamin 1,000 mcg 09/10/23 09:00 09/10/23 10:16 Cyanocobalamin 1,000 Mcg Tablet PO 1,000 mcg DAILY ALETA Administration Famotidine 20 mg 09/09/23 21:00 09/09/23 20:17 Famotidine 20 Mg Tablet PO 20 mg QHS ALETA Administration Gabapentin 300 mg 09/09/23 22:00 09/10/23 06:19 Gabapentin 300 Mg Capsule PO 300 mg Q8HR ALETA Administration Ceftriaxone Sodium 1 gm in 50 mls @ 100 mls/hr 09/10/23 09:00 09/10/23 09:30 Rocephin 1 Gm/Ns 50 Ml IVPB Infused Q24H ALETA Infusion Azithromycin 500 mg in 250 mls @ 250 mls/hr 09/10/23 09:00 09/10/23 10:15 Zithromax IVPB 250 mls/hr Q24H ALETA Administration Sodium Chloride 1,000 mls @ 125 mls/hr 09/09/23 12:45 09/09/23 22:07 Normal Saline Iv IV CONT 125 mls/hr .Q8H ALETA Administration Mirtazapine 30 mg 09/09/23 21:00 09/09/23 20:18 Mirtazapine 30 Mg Tablet PO 30 mg QHS ALETA Administration Ondansetron HCl 4 mg 09/09/23 17:53 Ondansetron Inj 4 Mg/2 Ml Vial IV PUSH Q6H PRN Nausea And Vomiting Oxycodone HCl 5 mg 09/09/23 17:55 Oxycodone Hcl (*Crx) 5 Mg Tab Ir PO Q6H PRN pain 7-10 Vitamin D 2,000 units 09/10/23 09:00 09/10/23 10:15 Cholecalciferol 1,000 Units Tablet PO 2,000 units DAILY ALETA Administration Vitamin E 400 unit 09/10/23 09:00 09/10/23 10:16 Vitamin E 400 Unit Capsule PO 400 unit DAILY ALETA Administration Radiology Results: ITS Impressions Chest X-Ray 09/09/23 11:14 IMPRESSION: 1. Dependent interstitial opacities in the bilateral lower lungs, right greater than left which could represent mild pulmonary edema, atelectasis or pneumonia. Modified Barium Swallow 09/10/23 10:38 IMPRESSION: Pharyngeal dysphagia including laryngeal penetration with uncontrolled thin liquids without aspiration. Please correlate with speech pathologist findings and specific feeding recommendations. Labs Labs: Laboratory Results - last 24 hr 09/09/23 09/09/23 09/09/23 10:50 11:08 20:40 WBC 17.9 H RBC 4.65 Hgb 13.7 Hct 42.0 MCV 90.3 MCH 29.5 MCHC 32.6 RDW 13.6 Plt Count 339 MPV 9.3 Immature Gran % (Auto) 0.4 Neut % (Auto) 85.7 H Lymph % (Auto) 7.0 L [place] % (Auto) 5.9 Eos % (Auto) 0.6 Baso % (Auto) 0.4 Lymph # (Auto) 1.25 [place] # (Auto) 1.1 H Eos # (Auto) 0.1 Baso # (Auto) 0.1 Abs Immat Gran (auto) 0.08 H Absolute Neuts (auto) 15.3 H Absolute Nucleated RBC 0.000 Nucleated RBC % 0.0 Puncture Site Left radial ABG pH 7.422 ABG pCO2 37.9 ABG pO2 206.6 H ABG PO2/FiO2 Ratio 2.58 ABG HCO3 24.1 ABG O2 Saturation 99.4 ABG O2 Content 20.6 ABG Base Excess 0.0 A-a Gradient 324.0 Oxyhemoglobin 98.4 Carboxyhemoglobin 0.7 Methemoglobin 0.4 Reduced Hemoglobin 0.5 Total Hemoglobin 14.6 O2 Delivery Device Nasal cannula O2 Liters/Min 15.0 FiO2 80 Sodium 137 Potassium 4.0 Chloride 96 L Carbon Dioxide 28 Anion Gap 13 H BUN 13 D Creatinine 0.80 Estim Creat Clear Calc Not Reportable Estimated GFR > 60 Glucose 119 H Lactic Acid 1.5 Calcium 8.9 Total Bilirubin 1.3 AST 21 ALT 14 Alkaline Phosphatase 117 Total Protein 8.0 Albumin 4.3 Influenza A (RT-PCR) Negative Influenza B (RT-PCR) Negative RSV (RT-PCR) Negative SARS-CoV-2 RNA (RT-PCR) Negative 09/10/23 04:02 WBC 9.9 RBC 4.02 L Hgb 11.8 L Hct 37.7 MCV 93.8 MCH 29.4 MCHC 31.3 L RDW 13.7 Plt Count 253 MPV 9.5 Immature Gran % (Auto) 0.5 Neut % (Auto) 78.9 H Lymph % (Auto) 11.7 L [place] % (Auto) 8.2 Eos % (Auto) 0.4 Baso % (Auto) 0.3 Lymph # (Auto) 1.16 [place] # (Auto) 0.8 H Eos # (Auto) 0.0 Baso # (Auto) 0.0 Abs Immat Gran (auto) 0.05 H Absolute Neuts (auto) 7.8 H Absolute Nucleated RBC 0.000 Nucleated RBC % 0.0 Puncture Site ABG pH ABG pCO2 ABG pO2 ABG PO2/FiO2 Ratio ABG HCO3 ABG O2 Saturation ABG O2 Content ABG Base Excess A-a Gradient Oxyhemoglobin Carboxyhemoglobin Methemoglobin Reduced Hemoglobin Total Hemoglobin O2 Delivery Device O2 Liters/Min FiO2 Sodium 137 Potassium 3.9 Chloride 104 Carbon Dioxide 25 Anion Gap 8 BUN 14 Creatinine 0.70 Estim Creat Clear Calc 47 Estimated GFR > 60 Glucose 117 H Lactic Acid Calcium 8.5 Total Bilirubin 0.7 AST 18 ALT 10 Alkaline Phosphatase 91 Total Protein 6.0 L Albumin 3.2 L Influenza A (RT-PCR) Influenza B (RT-PCR) RSV (RT-PCR) SARS-CoV-2 RNA (RT-PCR) Quality VTE Prophylaxis VTE prophylaxis: mechanical ordered Hospitalist MIPS Advance Care Plan I have confirmed that the patient's Advanced Care Plan is present, code status is documented, or surrogate decision maker is listed in patient medical record.: Yes Medication Reconciliation I have utilized all available resources to obtain, update and review the patients current medications (includes all prescriptions, OTC, herbals, cannabis, and nutritional supplements).: Yes
--- NOTE | 2023-09-10 13:35 | PCSTNOTE ---
Please refer to the Modified Barium Swallow Evaluation in the EMR.
[2023-09-10] MEDS: SODIUM CHLORIDE 0.9% IV 1,000 ML 125 ML IV CONT ×2 (15:05→22:44)
--- NOTE | 2023-09-10 15:46 | PC.NURSE ---
This patient, Kimberlyn Galindo, was received from IMU on 09/10/23 at 1546. Patient/family oriented to unit policies and routines
--- NOTE | 2023-09-10 15:52 | PC.NURSE ---
patient transferred to room 249 at 1545. Report given, no questions from receiving nurse.
--- NOTE | 2023-09-10 18:07 | PC.NURSE ---
On 09/10/23, the RN LP, [Mars Mondragon ], provided care and completed [employer] documentation on this patient. I have reviewed the RN GASTROENTEROLOGY's documentation and agree with the findings.
[2023-09-10] MEDS: oxyCODONE HCL (*CRX) 5 MG TAB IR PO (19:49)
[2023-09-10] MEDS: MIRTAZAPINE 30 MG TABLET PO (21:11)
[2023-09-10] MEDS: FAMOTIDINE 20 MG TABLET PO (21:11)
[2023-09-10] MEDS: ARIPiprazole 5 MG TABLET PO (21:11)
[2023-09-11] VITALS (14 sets, daily range): BP systolic 111–119; BP diastolic 46–53; PULSE 78–97; RESP 15–20; TEMP 36.1–36.9; O2SAT 90–96
[2023-09-11] MEDS: IPRATROPIUM 0.5 MG/ALBUTEROL SULFATE 2.5 MG AMPUL.NEB 3 ML INHALATION ×4 (02:31→20:45)
[2023-09-11 05:15] LABS: Basophils Percent Auto 0.2 % (0.2-1.2); Eosinophils Absolute Auto 0.1 K/mm3 (0-0.3); Eosinophils Percent Auto 0.9 % (0-4.4); Hematocrit 31.9 % (37.0-47.0); Hemoglobin 10.1 g/dL (12.0-15.0); Immature Granulocyte Absolute 0.05 K/mm3 (0.00-0.031); Immature Granulocyte Percent A 0.5 % (0-0.5); Lymphocytes Percent Auto 18.6 % (18.3-44.2); Mean Corpuscular HGB Conc 31.7 g/dl (32-36); Mean Corpuscular Hemoglobin 29.7 pg (26-34); Mean Corpuscular Volume 93.8 fl (80-100); Mean Platelet Volume 9.3 fl (7.4-10.4); Monocytes Absolute Auto 1.1 K/mm3 (0.1-0.6); Monocytes Percent Auto 10.8 % (2.6-8.5); Neutrophils Absolute Auto 6.7 K/mm3 (1.3-6.7); Platelet Count Result 244 k/mm3 (150-375); Red Cell Distribution Width 13.8 % (11.5-14.5); White Blood Count 9.7 K/mm3 (4.5-10.0)
[2023-09-11] MEDS: GABAPENTIN 300 MG CAPSULE PO ×3 (05:24→21:27)
[2023-09-11] MEDS: SODIUM CHLORIDE 0.9% IV 1,000 ML 125 ML IV CONT (06:28)
--- NOTE | 2023-09-11 07:14 | P.PNIM_ITS ---
Progress Note: A&P Assessment and Plan (1) Sepsis: Code(s): A41.9 - Sepsis, unspecified organism Status: Acute Assessment and Plan: 09/09/23: * Initially meeting sepsis criteria with heart rate of 117, respiratory rate of 22, white blood cell count 17.9, with source of infection being pneumonia * Blood cultures were obtained and are pending * Patient started on Rocephin and azithromycin while in the ED * Lactic acid was 1.5 09/10/23: * Blood Cultures are still pending * Continue with Rocephin and azithromycin * White blood cell count down to 9.9, afebrile 09/10: * Blood cultures preliminary reading with NGTD * WBC 9.7 (2) Acute hypoxic respiratory failure: Code(s): J96.01 - Acute respiratory failure with hypoxia Status: Acute Assessment and Plan: 09/09/23: * Likely secondary to community-acquired pneumonia * Chest x-ray showed dependent interstitial opacities in the bilateral lower lung zones right greater than the left representing either mild pulmonary edema versus pneumonia * WBC 17.9, T-max 99.8? * Continue Rocephin and azithromycin * DuoNebs q.6 hour * Continue to wean O2 for sat greater than 92% * Respiratory panel was negative for influenza a and B, RSV, COVID * Will check urine Legionella, urine strep, mycoplasma 09/10/23: * Swallow study showing pharyngeal dysphagia including laryngeal penetration with uncontrolled thin liquids without aspiration, adequate function * [place] thick liquids and small bite size diet * Continue to wean O2 for sat greater than 92% * Urine strep, urine Legionella, and mycoplasma are pending * Continue DuoNeb * White blood cell count down to 9.9, afebrile * Continue Rocephin and azithromycin 09/10: * Patient 88% on room air this morning. Continue with 2 L nasal cannula. Wean O2 as tolerated. * Pep, incentive spirometry ordered. Unclear patient will be able to complete therapies. Daughter said she will try. * Continue IV Rocephin. Azithromycin can be changed to p.o.. * Continue DuoNeb (3) Pneumonia: Code(s): J18.9 - Pneumonia, unspecified organism Status: Acute Assessment and Plan: See above plan of care (4) COPD (chronic obstructive pulmonary disease): Qualifiers: COPD type: unspecified COPD Qualified Code(s): J44.9 - Chronic obstruc tive pulmonary disease, unspecified Code(s): J44.9 - Chronic obstructive pulmonary disease, unspecified Status: Acute Assessment and Plan: See above plan of care (5) Bipolar affective disorder: Qualifiers: Active/Remission status: in partial remission Most recent bipolar episode type: mixed Qualified Code(s): F31.77 - Bipolar disorder, in partial remission, most recent episode mixed Code(s): F31.9 - Bipolar disorder, unspecified Status: Acute Assessment and Plan: 09/09/23: * Continue Abilify 09/10/23: * No change to current treatment plan (6) CVA (cerebral vascular accident): Code(s): I63.9 - Cerebral infarction, unspecified Status: Acute Assessment and Plan: 09/09/23: * Right-sided weakness and aphasia at baseline 09/10/23: * No change Plan Feeding: Heart healthy with soft and bite size with mildly thick liquids Analgesia: Tylenol Thromboembolic prophylaxis: SCDs Ulcer prophylaxis: Pepcid Bowel regimen: Senna Lines: Antibiotics: Rocephin and Zithromax Disposition: Patient presented with shortness of breath and complains of congestion and productive cough. Being treated for. She normally resides at home with her and her daughters come to the home to help with her care. Given her progressive weakness while hospitalized the daughters are hoping for SNF placement for further therapy. Family is preferring [facility] in [place]. Advance Care Plan I have confirmed that the patient's Advanced Care Plan is present, code status is documented, or surrogate decision maker is listed in patient medical record.: Yes Medication Reconciliation I have utilized all available resources to obtain, update and review the patients current medications (includes all prescriptions, OTC, herbals, cannabis, and nutritional supplements).: Yes Subjective Date/time seen: 09/11/23 07:14 Interval history: 78-year-old female with a significant past medical history of anxiety, COPD, depression, GERD, CVA with right-sided weakness and aphasia, vitamin B12 and vitamin-D deficiency who presents to the hospital for evaluation of shortness of breath/dyspnea. 09/10: Patient is seen resting in bed with her daughter at the bedside. Patient is sleeping in no acute distress with 2 L nasal cannula. ROS is difficult to completed she has expressive aphasia and slurred speech. Her daughter states that her breathing appears to be much improved. She still has a productive cough and she is now able to clear secretions. On exam she has pain with any manipulation of her right hand. Review of Systems Review of Systems: ROS unobtainable: Yes unobtainable due to medical condition (Patient is difficult to understand due to slurred speech and expressive aph) Exam Narrative: General: Frail, appears stated age. HEENT: normocephalic, atraumatic. Mucous membranes moist. EOMI, PERRLA, bilateral sclera anicteric, no conjunctival injection. Neck supple without JVD, lymphadenopathy, or bruit. Respiratory: clear to auscultation bilaterally. No rales/rhonic/wheezes. Cardiovascular: Regular rate and rhythm, normal S1-S2 upon auscultation. No murmurs, rubs, or clicks. PMI is nondisplaced, capillary refill less than 3 second. Abdomen: Soft, round, no pulsatile masses, nondistended and nontender. No rebound, no guarding. No CVA tenderness, no hepatosplenomegaly. Bowel sounds present to all four quadrants. No high pitch or tinkling sounds, resonant to percussion. Extremities: No cyanosis, clubbing, or edema present. Pulses are palpable 2/2. Right-sided weakness and immobility. Right hand contraction. Neuro: Drowsy and baseline orientation per family.. PERRLA. Cranial nerves 2-12 intact without focal deficit. Skin: Warm, dry, and intact, without rash, erythema, or lesion. Lines: PIV Psych: no hallucinations, expressive aphasia, slurred speech Objective Data Vital Signs Vital Signs: Vital Signs - 24 hr 09/10/23 07:53 09/10/23 08:04 09/10/23 08:04 Temperature 97 F L Pulse Rate 76 70 Respiratory Rate 18 14 Blood Pressure 95/39 L Pulse Oximetry 99 100 Oxygen Delivery High Flow Nasal Cannula Oxygen Flow Rate 6 09/10/23 08:12 09/10/23 08:00 09/10/23 08:00 Temperature Pulse Rate 74 75 Respiratory Rate 14 Blood Pressure Pulse Oximetry 98 Oxygen Delivery Nasal Cannula Oxygen Flow Rate 2 09/10/23 10:00 09/10/23 11:24 09/10/23 12:00 Temperature 97.6 F Pulse Rate 84 80 78 Respiratory Rate 22 H Blood Pressure 95/46 L Pulse Oximetry 98 Oxygen Delivery Oxygen Flow Rate 09/10/23 12:00 09/10/23 15:48 09/10/23 16:44 Temperature 98.2 F Pulse Rate 104 H Respiratory Rate 17 Blood Pressure 145/58 H Pulse Oximetry 98 100 Oxygen Delivery Nasal Cannula Nasal Cannula Oxygen Flow Rate 2 3 09/10/23 19:57 09/10/23 20:41 09/10/23 20:00 Temperature 97.5 F L Pulse Rate 94 97 Respiratory Rate 18 15 Blood Pressure 134/66 Pulse Oximetry 83 L 94 Oxygen Delivery Nasal Cannula Oxygen Flow Rate 2 09/11/23 00:00 09/11/23 02:30 Temperature 97.5 F L Pulse Rate 90 90 Respiratory Rate 18 15 Blood Pressure 118/51 L Pulse Oximetry 94 Oxygen Delivery Oxygen Flow Rate Intake/Output Intake/Output: Intake & Output 09/08/23 09/09/23 09/10/23 09/11/23 23:59 23:59 23:59 23:59 Intake Total 1360 3796.3 966.7 Output Total 400 650 Balance 1360 3396.3 316.7 Meds/Results Medications: Active Medications Generic Name Dose Route Start Last Admin Trade Name Freq PRN Reason Stop Dose Admin Acetaminophen 650 mg 09/09/23 17:53 Acetaminophen 325 Mg Tablet PO Q4H PRN Mild Pain (1-3) or Fever Hydrocodone Bitart/Acetaminophen 1 tab 09/09/23 12:42 09/09/23 17:01 Hydrocodone/Acetaminophen (*Crx) 5-325 Mg Tablet PO 1 tab Q4H PRN Administration Pain Rated 4-6 Albuterol/Ipratropium 3 ml 09/09/23 14:00 09/11/23 02:31 Ipratropium 0.5 Mg/Albuterol Sulfate 2.5 Mg Ampul.Neb 3 Ml INHALATION 3 ml Q6HRT ALETA Administration Alprazolam 25 mg 09/09/23 17:55 Alprazolam (*Crx) 0.5 Mg Tablet PO DAILY PRN anxiety Aripiprazole 5 mg 09/09/23 21:00 09/10/23 21:11 Aripiprazole 5 Mg Tablet PO 5 mg HS ALETA Administration Cyanocobalamin 1,000 mcg 09/10/23 09:00 09/10/23 10:16 Cyanocobalamin 1,000 Mcg Tablet PO 1,000 mcg DAILY ALETA Administration Famotidine 20 mg 09/09/23 21:00 09/10/23 21:11 Famotidine 20 Mg Tablet PO 20 mg QHS ALETA Administration Gabapentin 300 mg 09/09/23 22:00 09/11/23 05:24 Gabapentin 300 Mg Capsule PO 300 mg Q8HR ALETA Administration Ceftriaxone Sodium 1 gm in 50 mls @ 100 mls/hr 09/10/23 09:00 09/10/23 09:30 Rocephin 1 Gm/Ns 50 Ml IVPB Infused Q24H ALETA Infusion Azithromycin 500 mg in 250 mls @ 250 mls/hr 09/10/23 09:00 09/10/23 14:59 Zithromax IVPB Infused Q24H ALETA Infusion Sodium Chloride 1,000 mls @ 125 mls/hr 09/09/23 12:45 09/11/23 06:28 Normal Saline Iv IV CONT 125 mls/hr .Q8H ALETA Administration Mirtazapine 30 mg 09/09/23 21:00 09/10/23 21:11 Mirtazapine 30 Mg Tablet PO 30 mg QHS ALETA Administration Ondansetron HCl 4 mg 09/09/23 17:53 Ondansetron Inj 4 Mg/2 Ml Vial IV PUSH Q6H PRN Nausea And Vomiting Oxycodone HCl 5 mg 09/09/23 17:55 09/10/23 19:49 Oxycodone Hcl (*Crx) 5 Mg Tab Ir PO 5 mg Q6H PRN Administration pain 7-10 Vitamin D 2,000 units 09/10/23 09:00 09/10/23 10:15 Cholecalciferol 1,000 Units Tablet PO 2,000 units DAILY ALETA Administration Vitamin E 400 unit 09/10/23 09:00 09/10/23 10:16 Vitamin E 400 Unit Capsule PO 400 unit DAILY ALETA Administration Radiology Results: ITS Impressions Chest X-Ray 09/09/23 11:14 IMPRESSION: 1. Dependent interstitial opacities in the bilateral lower lungs, right greater than left which could represent mild pulmonary edema, atelectasis or pneumonia. Modified Barium Swallow 09/10/23 10:38 IMPRESSION: Pharyngeal dysphagia including laryngeal penetration with uncontrolled thin liquids without aspiration. Please correlate with speech pathologist findings and specific feeding recommendations. Labs Labs: Laboratory Results - last 24 hr 09/11/23 04:56 WBC 9.7 RBC 3.40 L Hgb 10.1 L Hct 31.9 L MCV 93.8 MCH 29.7 MCHC 31.7 L RDW 13.8 Plt Count 244 MPV 9.3 Immature Gran % (Auto) 0.5 Neut % (Auto) 69.0 Lymph % (Auto) 18.6 [place] % (Auto) 10.8 H Eos % (Auto) 0.9 Baso % (Auto) 0.2 Lymph # (Auto) 1.80 [place] # (Auto) 1.1 H Eos # (Auto) 0.1 Baso # (Auto) 0.0 Abs Immat Gran (auto) 0.05 H Absolute Neuts (auto) 6.7 Absolute Nucleated RBC 0.000 Nucleated RBC % 0.0 Quality VTE Prophylaxis VTE prophylaxis: mechanical ordered Hospitalist MIPS Advance Care Plan I have confirmed that the patient's Advanced Care Plan is present, code status is documented, or surrogate decision maker is listed in patient medical record.: Yes Medication Reconciliation I have utilized all available resources to obtain, update and review the patients current medications (includes all prescriptions, OTC, herbals, cannabis, and nutritional supplements).: Yes
[2023-09-11] MEDS: CHOLECALCIFEROL 1,000 UNITS TABLET 2000 UNITS PO (07:49)
[2023-09-11] MEDS: CYANOCOBALAMIN 1,000 MCG TABLET 1000 MCG PO (07:49)
[2023-09-11] MEDS: AZITHROMYCIN 500 MG/NS 250 ML 500 MG/250 ML BAG 125 MG IVPB (08:43)
--- NOTE | 2023-09-11 11:07 | PCPTNOTE ---
Attempted to see patient for PT, however patient was drowsy and had difficulty staying awake for participation. RN aware. Patient unable to be seen for PT at this time due to drowsiness.
[2023-09-11] MEDS: HYDROcodone/acetaminophen (*CRX) 5-325 MG TABLET 1 TAB PO (14:29)
[2023-09-11] MEDS: ARIPiprazole 5 MG TABLET PO (20:32)
[2023-09-11] MEDS: MIRTAZAPINE 30 MG TABLET PO (20:32)
[2023-09-11] MEDS: SENNA/DOCUSATE SODIUM TABLET 1 TAB PO (20:32)
[2023-09-11] MEDS: FAMOTIDINE 20 MG TABLET PO (20:32)
[2023-09-12] VITALS (11 sets, daily range): BP systolic 118–123; BP diastolic 51–52; PULSE 79–92; RESP 18–22; TEMP 36.3–36.9; O2SAT 94–100
[2023-09-12 05:24] LABS: Basophils Percent Auto 0.4 % (0.2-1.2); Eosinophils Absolute Auto 0.1 K/mm3 (0-0.3); Eosinophils Percent Auto 1.5 % (0-4.4); Hematocrit 31.8 % (37.0-47.0); Hemoglobin 10.3 g/dL (12.0-15.0); Immature Granulocyte Absolute 0.06 K/mm3 (0.00-0.031); Immature Granulocyte Percent A 0.7 % (0-0.5); Lymphocytes Absolute Auto 1.45 K/mm3 (0.9-3.2); Mean Corpuscular HGB Conc 32.4 g/dl (32-36); Mean Corpuscular Hemoglobin 29.5 pg (26-34); Mean Corpuscular Volume 91.1 fl (80-100); Mean Platelet Volume 9.5 fl (7.4-10.4); Monocytes Percent Auto 12.1 % (2.6-8.5); Neutrophils Absolute Auto 5.8 K/mm3 (1.3-6.7); Neutrophils Percent Auto 68.3 % (45.5-73.1); Platelet Count Result 313 k/mm3 (150-375); Red Blood Count 3.49 M/mm3 (4.2-5.4); Red Cell Distribution Width 13.9 % (11.5-14.5); White Blood Count 8.5 K/mm3 (4.5-10.0)
[2023-09-12 05:48] LABS: Alanine Aminotransferase 8 U/L (6-35); Albumin Level 3.1 g/dL (3.5-5.1); Alkaline Phosphatase 71 U/L (38-126); Anion Gap 8 mmol/L (4-12); Aspartate Amino Transferase 20 U/L (14-36); Bilirubin,Total 0.9 mg/dL (0.2-1.3); Blood Urea Nitrogen 5 mg/dL (7-17); Calcium 8.3 mg/dL (8.4-10.2); Carbon Dioxide 27 mmol/L (22-30); Chloride 103 mmol/L (98-107); Estimated CRCL calculation 54 ml/min; Estimated Glomerular Filt Rate > 60; Glucose 106 mg/dL (65-110); Potassium 3.6 mmol/L (3.4-5.0); Sodium 138 mmol/L (137-145)
[2023-09-12] MEDS: GABAPENTIN 300 MG CAPSULE PO ×3 (06:47→21:27)
[2023-09-12] MEDS: IPRATROPIUM 0.5 MG/ALBUTEROL SULFATE 2.5 MG AMPUL.NEB 3 ML INHALATION ×3 (07:18→20:44)
--- NOTE | 2023-09-12 07:28 | P.PNIM_ITS ---
Progress Note: A&P Assessment and Plan (1) Sepsis: Code(s): A41.9 - Sepsis, unspecified organism Status: Acute Assessment and Plan: 09/09/23: * Initially meeting sepsis criteria with heart rate of 117, respiratory rate of 22, white blood cell count 17.9, with source of infection being pneumonia * Blood cultures were obtained and are pending * Patient started on Rocephin and azithromycin while in the ED * Lactic acid was 1.5 09/10/23: * Blood Cultures are still pending * Continue with Rocephin and azithromycin * White blood cell count down to 9.9, afebrile 09/10: * Blood cultures preliminary reading with NGTD * WBC 9.7 09/11: WBC normal * Procal added on * Switched to PO Augmentin and azithromycin (2) Acute hypoxic respiratory failure: Code(s): J96.01 - Acute respiratory failure with hypoxia Status: Acute Assessment and Plan: 09/09/23: * Likely secondary to community-acquired pneumonia * Chest x-ray showed dependent interstitial opacities in the bilateral lower lung zones right greater than the left representing either mild pulmonary edema versus pneumonia * WBC 17.9, T-max 99.8? * Continue Rocephin and azithromycin * DuoNebs q.6 hour * Continue to wean O2 for sat greater than 92% * Respiratory panel was negative for influenza a and B, RSV, COVID * Will check urine Legionella, urine strep, mycoplasma 09/10/23: * Swallow study showing pharyngeal dysphagia including laryngeal penetration with uncontrolled thin liquids without aspiration, adequate function * [place] thick liquids and small bite size diet * Continue to wean O2 for sat greater than 92% * Urine strep, urine Legionella, and mycoplasma are pending * Continue DuoNeb * White blood cell count down to 9.9, afebrile * Continue Rocephin and azithromycin 09/10: * Patient 88% on room air this morning. Continue with 2 L nasal cannula. Wean O2 as tolerated. * Pep, incentive spirometry ordered. Unclear patient will be able to complete therapies. Daughter said she will try. * Continue IV Rocephin. Azithromycin can be changed to p.o.. * Continue DuoNeb 09/11: * Oxygen 92% on 2 L NC * May end up needing oxygen at discharge * Abx PO (3) Pneumonia: Code(s): J18.9 - Pneumonia, unspecified organism Status: Acute Assessment and Plan: See above plan of care (4) COPD (chronic obstructive pulmonary disease): Qualifiers: COPD type: unspecified COPD Qualified Code(s): J44.9 - Chronic obstructive pulmonary disease, unspecified Code(s): J44.9 - Chronic obstructive pulmonary disease, unspecified Status: Acute Assessment and Plan: See above plan of care (5) Bipolar affective disorder: Qualifiers: Active/Remission status: in partial remission Most recent bipolar episode type: mixed Qualified Code(s): F31.77 - Bipolar disorder, in partial remission, most recent episode mixed Code(s): F31.9 - Bipolar disorder, unspecified Status: Acute Assessment and Plan: 09/09/23: * Continue Abilify 09/10/23: * No change to current treatment plan (6) CVA (cerebral vascular accident): Code(s): I63.9 - Cerebral infarction, unspecified Status: Acute Assessment and Plan: 09/09/23: * Right-sided weakness and aphasia at baseline 09/10/23: * No change Plan Feeding: Heart healthy with soft and bite size with mildly thick liquids Analgesia: Tylenol Thromboembolic prophylaxis: SCDs Ulcer prophylaxis: Pepcid Bowel regimen: Senna Lines: Antibiotics: Rocephin and Zithromax Disposition: Patient presented with shortness of breath and complains of congestion and productive cough. Being treated for. She normally resides at home with her and her daughters come to the home to help with her care. Given her progressive weakness while hospitalized the daughters are hoping for SNF placement for further therapy. Family is preferring [facility] in [place]. Advance Care Plan I have confirmed that the patient's Advanced Care Plan is present, code status is documented, or surrogate decision maker is listed in patient medical record.: Yes Medication Reconciliation I have utilized all available resources to obtain, update and review the patients current medications (includes all prescriptions, OTC, herbals, cannabis, and nutritional supplements).: Yes Subjective Date/time seen: 09/12/23 07:28 Interval history: 78-year-old female with a significant past medical history of anxiety, COPD, depression, GERD, CVA with right-sided weakness and aphasia, vitamin B12 and vitamin-D deficiency who presents to the hospital for evaluation of shortness of breath/dyspnea. 09/10: Patient is seen resting in bed with her daughter at the bedside. Patient is sleeping in no acute distress with 2 L nasal cannula. ROS is difficult to completed she has expressive aphasia and slurred speech. Her daughter states that her breathing appears to be much improved. She still has a productive cough and she is now able to clear secretions. On exam she has pain with any manipulation of her right hand. 09/11: No acute events overnight. She is still requiring 2 L of oxygen to keep her O2 sats greater than 90%. She may end up requiring oxygen at discharge. Family and care coordination are working towards SNF placement with preference of [facility]. Review of Systems Review of Systems: All systems reviewed & are unremarkable except as noted in HPI and below Exam Narrative: General: Frail, appears stated age. HEENT: normocephalic, atraumatic. Mucous membranes moist. EOMI, PERRLA, bilateral sclera anicteric, no conjunctival injection. Neck supple without JVD, lymphadenopathy, or bruit. Respiratory: clear to auscultation bilaterally. No rales/rhonic/wheezes. Cardiovascular: Regular rate and rhythm, normal S1-S2 upon auscultation. No murmurs, rubs, or clicks. PMI is nondisplaced, capillary refill less than 3 second. Abdomen: Soft, round, no pulsatile masses, nondistended and nontender. No rebound, no guarding. No CVA tenderness, no hepatosplenomegaly. Bowel sounds present to all four quadrants. No high pitch or tinkling sounds, resonant to percussion. Extremities: No cyanosis, clubbing, or edema present. Pulses are palpable 2/2. Right-sided weakness and immobility. Right hand contraction. Neuro: Alert and baseline orientation per family.. PERRLA. Cranial nerves 2-12 intact without focal deficit. Skin: Warm, dry, and intact, without rash, erythema, or lesion. Lines: PIV Psych: no hallucinations, expressive aphasia, slurred speech Objective Data Vital Signs Vital Signs: Vital Signs - 24 hr 09/11/23 07:59 09/11/23 07:59 09/11/23 08:08 Temperature Pulse Rate 80 84 Respiratory Rate 16 18 Blood Pressure Pulse Oximetry 91 Oxygen Delivery Nasal Cannula Oxygen Flow Rate 2 09/11/23 08:00 09/11/23 10:59 09/11/23 13:25 Temperature 98.3 F Pulse Rate 90 96 Respiratory Rate 20 18 Blood Pressure 112/46 L Pulse Oximetry 92 90 Oxygen Delivery Nasal Cannula Oxygen Flow Rate 2 09/11/23 13:33 09/11/23 15:14 09/11/23 19:51 Temperature 98.4 F 97.7 F Pulse Rate 96 97 82 Respiratory Rate 18 16 20 Blood Pressure 116/50 L 111/53 L Pulse Oximetry 94 96 Oxygen Delivery Oxygen Flow Rate 09/11/23 20:45 09/11/23 20:45 09/11/23 20:52 Temperature Pulse Rate 84 84 84 Respiratory Rate 20 20 Blood Pressure Pulse Oximetry 94 Oxygen Delivery High Flow Nasal Cannula Oxygen Flow Rate 2 09/11/23 20:00 09/11/23 23:37 09/12/23 07:18 Temperature 97.0 F L Pulse Rate 78 Respiratory Rate 20 Blood Pressure 119/52 L Pulse Oximetry 94 94 95 Oxygen Delivery Nasal Cannula High Flow Nasal Cannula Oxygen Flow Rate 2 2 09/12/23 07:18 Temperature Pulse Rate 79 Respiratory Rate 18 Blood Pressure Pulse Oximetry Oxygen Delivery Oxygen Flow Rate Intake/Output Intake/Output: Intake & Output 09/09/23 09/10/23 09/11/23 09/12/23 23:59 23:59 23:59 23:59 Intake Total 1360 3796.3 1506.7 Output Total 400 1050 450 Balance 1360 3396.3 456.7 -450 Meds/Results Medications: Active Medications Generic Name Dose Route Start Last Admin Trade Name Freq PRN Reason Stop Dose Admin Acetaminophen 650 mg 09/09/23 17:53 Acetaminophen 325 Mg Tablet PO Q4H PRN Mild Pain (1-3) or Fever Hydrocodone Bitart/Acetaminophen 1 tab 09/09/23 12:42 09/11/23 14:29 Hydrocodone/Acetaminophen (*Crx) 5-325 Mg Tablet PO 1 tab Q4H PRN Administration Pain Rated 4-6 Albuterol/Ipratropium 3 ml 09/09/23 14:00 09/12/23 07:18 Ipratropium 0.5 Mg/Albuterol Sulfate 2.5 Mg Ampul.Neb 3 Ml INHALATION 3 ml Q6HRT ALETA Administration Alprazolam 25 mg 09/09/23 17:55 Alprazolam (*Crx) 0.5 Mg Tablet PO DAILY PRN anxiety Aripiprazole 5 mg 09/09/23 21:00 09/11/23 20:32 Aripiprazole 5 Mg Tablet PO 5 mg HS ALETA Administration Azithromycin 500 mg 09/12/23 09:00 Azithromycin 250 Mg Tablet PO 09/13/23 09:01 DAILY ALETA Cyanocobalamin 1,000 mcg 09/10/23 09:00 09/11/23 07:49 Cyanocobalamin 1,000 Mcg Tablet PO 1,000 mcg DAILY ALETA Administration Famotidine 20 mg 09/09/23 21:00 09/11/23 20:32 Famotidine 20 Mg Tablet PO 20 mg QHS ALETA Administration Gabapentin 300 mg 09/09/23 22:00 09/12/23 06:47 Gabapentin 300 Mg Capsule PO 300 mg Q8HR ALETA Administration Ceftriaxone Sodium 1 gm in 50 mls @ 100 mls/hr 09/10/23 09:00 09/11/23 10:58 Rocephin 1 Gm/Ns 50 Ml IVPB Infused Q24H ALETA Infusion Mirtazapine 30 mg 09/09/23 21:00 09/11/23 20:32 Mirtazapine 30 Mg Tablet PO 30 mg QHS ALETA Administration Ondansetron HCl 4 mg 09/09/23 17:53 Ondansetron Inj 4 Mg/2 Ml Vial IV PUSH Q6H PRN Nausea And Vomiting Oxycodone HCl 5 mg 09/09/23 17:55 09/10/23 19:49 Oxycodone Hcl (*Crx) 5 Mg Tab Ir PO 5 mg Q6H PRN Administration pain 7-10 Senna/Docusate Sodium 1 tab 09/11/23 21:00 09/11/23 20:32 Senna/Docusate Sodium Tablet PO 1 tab HS ALETA Administration Vitamin D 2,000 units 09/10/23 09:00 09/11/23 07:49 Cholecalciferol 1,000 Units Tablet PO 2,000 units DAILY ALETA Administration Vitamin E 400 unit 09/10/23 09:00 09/11/23 07:48 Vitamin E 400 Unit Capsule PO Not Given DAILY [facility] Radiology Results: ITS Impressions Chest X-Ray 09/09/23 11:14 IMPRESSION: 1. Dependent interstitial opacities in the bilateral lower lungs, right greater than left which could represent mild pulmonary edema, atelectasis or pneumonia. Modified Barium Swallow 09/10/23 10:38 IMPRESSION: Pharyngeal dysphagia including laryngeal penetration with uncontrolled thin liquids without aspiration. Please correlate with speech pathologist findings and specific feeding recommendations. Labs Labs: Laboratory Results - last 24 hr 09/12/23 04:55 WBC 8.5 RBC 3.49 L Hgb 10.3 L Hct 31.8 L MCV 91.1 MCH 29.5 MCHC 32.4 RDW 13.9 Plt Count 313 MPV 9.5 Immature Gran % (Auto) 0.7 H Neut % (Auto) 68.3 Lymph % (Auto) 17.0 L [place] % (Auto) 12.1 H Eos % (Auto) 1.5 Baso % (Auto) 0.4 Lymph # (Auto) 1.45 [place] # (Auto) 1.0 H Eos # (Auto) 0.1 Baso # (Auto) 0.0 Abs Immat Gran (auto) 0.06 H Absolute Neuts (auto) 5.8 Absolute Nucleated RBC 0.000 Nucleated RBC % 0.0 Sodium 138 Potassium 3.6 Chloride 103 Carbon Dioxide 27 Anion Gap 8 BUN 5 L D Creatinine 0.60 L Estim Creat Clear Calc 54 Estimated GFR > 60 Glucose 106 Calcium 8.3 L Total Bilirubin 0.9 AST 20 ALT 8 Alkaline Phosphatase 71 Total Protein 6.0 L Albumin 3.1 L Quality VTE Prophylaxis VTE prophylaxis: mechanical ordered
[2023-09-12] MEDS: AZITHROMYCIN 250 MG TABLET 500 MG PO (09:12)
[2023-09-12] MEDS: AMOXICILLIN/CLAVULANATE K 875-125 MG TAB 1 TABLET PO ×2 (13:34→21:26)
[2023-09-12 13:56] LABS: Procalcitonin 0.7 ng/mL
[2023-09-12 16:14] LABS: Pneumococcal Antigen Urine NOT DETECTED
[2023-09-12] MEDS: FAMOTIDINE 20 MG TABLET PO (21:26)
[2023-09-12] MEDS: SENNA/DOCUSATE SODIUM TABLET 1 TAB PO (21:26)
[2023-09-12] MEDS: ARIPiprazole 5 MG TABLET PO (21:26)
[2023-09-12] MEDS: MIRTAZAPINE 30 MG TABLET PO (21:27)
[2023-09-13] VITALS (10 sets, daily range): BP systolic 96–111; BP diastolic 50–54; PULSE 76–91; RESP 16–18; TEMP 36.5–36.6; O2SAT 92–96
[2023-09-13] MEDS: IPRATROPIUM 0.5 MG/ALBUTEROL SULFATE 2.5 MG AMPUL.NEB 3 ML INHALATION ×3 (02:54→13:34)
[2023-09-13] MEDS: ONDANSETRON HCL ODT 4 MG TABLET PO (04:59)
[2023-09-13 05:20] LABS: Basophils Percent Auto 0.3 % (0.2-1.2); Eosinophils Absolute Auto 0.2 K/mm3 (0-0.3); Eosinophils Percent Auto 1.7 % (0-4.4); Hemoglobin 11.4 g/dL (12.0-15.0); Immature Granulocyte Absolute 0.07 K/mm3 (0.00-0.031); Immature Granulocyte Percent A 0.8 % (0-0.5); Lymphocytes Absolute Auto 0.75 K/mm3 (0.9-3.2); Lymphocytes Percent Auto 8.7 % (18.3-44.2); Mean Corpuscular HGB Conc 31.7 g/dl (32-36); Mean Corpuscular Hemoglobin 29.3 pg (26-34); Mean Corpuscular Volume 92.5 fl (80-100); Mean Platelet Volume 9.5 fl (7.4-10.4); Monocytes Absolute Auto 0.9 K/mm3 (0.1-0.6); Monocytes Percent Auto 9.9 % (2.6-8.5); Neutrophils Absolute Auto 6.8 K/mm3 (1.3-6.7); Neutrophils Percent Auto 78.6 % (45.5-73.1); Platelet Count Result 338 k/mm3 (150-375); Red Blood Count 3.89 M/mm3 (4.2-5.4); Red Cell Distribution Width 13.7 % (11.5-14.5); White Blood Count 8.6 K/mm3 (4.5-10.0)
[2023-09-13 05:31] LABS: Alanine Aminotransferase 11 U/L (6-35); Albumin Level 3.4 g/dL (3.5-5.1); Alkaline Phosphatase 101 U/L (38-126); Anion Gap 10 mmol/L (4-12); Aspartate Amino Transferase 18 U/L (14-36); Bilirubin,Total 0.7 mg/dL (0.2-1.3); Blood Urea Nitrogen 6 mg/dL (7-17); Calcium 8.5 mg/dL (8.4-10.2); Carbon Dioxide 30 mmol/L (22-30); Chloride 99 mmol/L (98-107); Estimated CRCL calculation 54 ml/min; Estimated Glomerular Filt Rate > 60; Glucose 135 mg/dL (65-110); Potassium 3.3 mmol/L (3.4-5.0); Sodium 139 mmol/L (137-145)
[2023-09-13 05:45] LABS: Procalcitonin 0.5 ng/mL
[2023-09-13] MEDS: GABAPENTIN 300 MG CAPSULE PO ×2 (06:30→12:59)
--- NOTE | 2023-09-13 07:21 | P.PNIM_ITS ---
Progress Note: A&P Assessment and Plan (1) Sepsis: Code(s): A41.9 - Sepsis, unspecified organism Status: Acute Assessment and Plan: 09/09/23: * Initially meeting sepsis criteria with heart rate of 117, respiratory rate of 22, white blood cell count 17.9, with source of infection being pneumonia * Blood cultures were obtained and are pending * Patient started on Rocephin and azithromycin while in the ED * Lactic acid was 1.5 09/10/23: * Blood Cultures are still pending * Continue with Rocephin and azithromycin * White blood cell count down to 9.9, afebrile 09/10: * Blood cultures preliminary reading with NGTD * WBC 9.7 09/11: WBC normal * Procal added on * Switched to PO Augmentin and azithromycin 09/12: No change to plan of care. (2) Acute hypoxic respiratory failure: Code(s): J96.01 - Acute respiratory failure with hypoxia Status: Acute Assessment and Plan: 09/09/23: * Likely secondary to community-acquired pneumonia * Chest x-ray showed dependent interstitial opacities in the bilateral lower lung zones right greater than the left representing either mild pulmonary edema versus pneumonia * WBC 17.9, T-max 99.8? * Continue Rocephin and azithromycin * DuoNebs q.6 hour * Continue to wean O2 for sat greater than 92% * Respiratory panel was negative for influenza a and B, RSV, COVID * Will check urine Legionella, urine strep, mycoplasma 09/10/23: * Swallow study showing pharyngeal dysphagia including laryngeal penetration with uncontrolled thin liquids without aspiration, adequate function * [place] thick liquids and small bite size diet * Continue to wean O2 for sat greater than 92% * Urine strep, urine Legionella, and mycoplasma are pending * Continue DuoNeb * White blood cell count down to 9.9, afebrile * Continue Rocephin and azithromycin 09/10: * Patient 88% on room air this morning. Continue with 2 L nasal cannula. Wean O2 as tolerated. * Pep, incentive spirometry ordered. Unclear patient will be able to complete therapies. Daughter said she will try. * Continue IV Rocephin. Azithromycin can be changed to p.o.. * Continue DuoNeb 09/11: * Oxygen 92% on 2 L NC * May end up needing oxygen at discharge * Abx PO 09/12: * Continue pulmonary toilet * Up to chair as tolerated * Wean oxygen to maintain sats > 90% (3) Pneumonia: Code(s): J18.9 - Pneumonia, unspecified organism Status: Acute Assessment and Plan: See above plan of care (4) COPD (chronic obstructive pulmonary disease): Qualifiers: COPD type: unspecified COPD Qualified Code(s): J44.9 - Chronic obstructive pulmonary disease, unspecified Code(s): J44.9 - Chronic obstructive pulmonary disease, unspecified Status: Acute Assessment and Plan: See above plan of care (5) Bipolar affective disorder: Qualifiers: Active/Remission status: in partial remission Most recent bipolar episode type: mixed Qualified Code(s): F31.77 - Bipolar disorder, in partial remission, most recent episode mixed Code(s): F31.9 - Bipolar disorder, unspecified Status: Acute Assessment and Plan: 09/09/23: * Continue Abilify 09/10/23: * No change to current treatment plan (6) CVA (cerebral vascular accident): Code(s): I63.9 - Cerebral infarction, unspecified Status: Acute Assessment and Plan: 09/09/23: * Right-sided weakness and aphasia at baseline 09/10/23: * No change Plan Feeding: Heart healthy with soft and bite size with mildly thick liquids Analgesia: Tylenol Thromboembolic prophylaxis: SCDs Ulcer prophylaxis: Pepcid Bowel regimen: Senna Lines: Antibiotics: Augmentin and Zithromax Disposition: Patient presented with shortness of breath and complains of conge stion and productive cough. Being treated for. She normally resides at home with her and her daughters come to the home to help with her care. Given her progressive weakness while hospitalized the daughters are hoping for SNF placement for further therapy. Patient has been accepted to [facility] in [place], awaiting insurance authorization. Advance Care Plan I have confirmed that the patient's Advanced Care Plan is present, code status is documented, or surrogate decision maker is listed in patient medical record.: Yes Medication Reconciliation I have utilized all available resources to obtain, update and review the patients current medications (includes all prescriptions, OTC, herbals, cannabis, and nutritional supplements).: Yes Subjective Date/time seen: 09/13/23 07:21 Interval history: 78-year-old female with a significant past medical history of anxiety, COPD, depression, GERD, CVA with right-sided weakness and aphasia, vitamin B12 and vitamin-D deficiency who presents to the hospital for evaluation of shortness of breath/dyspnea. 09/10: Patient is seen resting in bed with her daughter at the bedside. Patient is sleeping in no acute distress with 2 L nasal cannula. ROS is difficult to completed she has expressive aphasia and slurred speech. Her daughter states that her breathing appears to be much improved. She still has a productive cough and she is now able to clear secretions. On exam she has pain with any manipulation of her right hand. 09/11: No acute events overnight. She is still requiring 2 L of oxygen to keep her O2 sats greater than 90%. She may end up requiring oxygen at discharge. Family and care coordination are working towards SNF placement with preference of [facility]. 09/12: Nursing reports two episodes of vomiting overnight. Unclear when her last bowel movement was as none charted this admission. Her abdomen does appear slightly distended today. Her daughter says she was accepted to [facility]. Care coordination is awaiting insurance auth. Patient is medically ready to discharge. Review of Systems Review of Systems: All systems reviewed & are unremarkable except as noted in HPI and below Exam Narrative: General: Frail, appears stated age. HEENT: normocephalic, atraumatic. Mucous membranes moist. EOMI, PERRLA, bilateral sclera anicteric, no conjunctival injection. Neck supple without JVD, lymphadenopathy, or bruit. Respiratory: clear to auscultation bilaterally. No rales/rhonic/wheezes. Cardiovascular: Regular rate and rhythm, normal S1-S2 upon auscultation. No murmurs, rubs, or clicks. PMI is nondisplaced, capillary refill less than 3 second. Abdomen: Soft, round, no pulsatile masses, nondistended and nontender. No rebound, no guarding. No CVA tenderness, no hepatosplenomegaly. Bowel sounds present to all four quadrants. No high pitch or tinkling sounds, resonant to p ercussion. Extremities: No cyanosis, clubbing, or edema present. Pulses are palpable 2/2. Right-sided weakness and immobility. Right hand contraction. Neuro: Alert and baseline orientation per family.. PERRLA. Cranial nerves 2-12 intact without focal deficit. Skin: Warm, dry, and intact, without rash, erythema, or lesion. Lines: PIV Psych: no hallucinations, expressive aphasia, slurred speech Objective Data Vital Signs Vital Signs: Vital Signs - 24 hr 09/12/23 07:39 09/12/23 09:12 09/12/23 12:22 Temperature 97.3 F L Pulse Rate 83 92 Respiratory Rate 18 18 22 H Blood Pressure 118/51 L Pulse Oximetry 95 100 Oxygen Delivery High Flow Nasal Cannula Oxygen Flow Rate 2 09/12/23 13:30 09/12/23 13:40 09/12/23 20:00 Temperature Pulse Rate 89 90 Respiratory Rate 18 18 Blood Pressure Pulse Oximetry 98 Oxygen Delivery Nasal Cannula Oxygen Flow Rate 2 09/12/23 20:19 09/12/23 20:44 09/12/23 20:46 Temperature 98.5 F Pulse Rate 88 84 Respiratory Rate 18 18 Blood Pressure 123/52 L Pulse Oximetry 96 94 Oxygen Delivery Nasal Cannula Oxygen Flow Rate 2 09/12/23 20:57 09/13/23 02:54 09/13/23 03:03 Temperature Pulse Rate 80 76 79 Respiratory Rate 18 18 18 Blood Pressure Pulse Oximetry Oxygen Delivery Oxygen Flow Rate 09/13/23 04:03 Temperature 97.8 F Pulse Rate 91 Respiratory Rate 18 Blood Pressure 111/54 L Pulse Oximetry 92 Oxygen Delivery Oxygen Flow Rate Intake/Output Intake/Output: Intake & Output 09/10/23 09/11/23 09/12/23 09/13/23 23:59 23:59 23:59 23:59 Intake Total 3796.3 1506.7 500 0 Output Total 400 1050 950 300 Balance 3396.3 456.7 -450 -300 Meds/Results Medications: Active Medications Generic Name Dose Route Start Last Admin Trade Name Freq PRN Reason Stop Dose Admin Acetaminophen 650 mg 09/09/23 17:53 Acetaminophen 325 Mg Tablet PO Q4H PRN Mild Pain (1-3) or Fever Hydrocodone Bitart/Acetaminophen 1 tab 09/09/23 12:42 09/11/23 14:29 Hydrocodone/Acetaminophen (*Crx) 5-325 Mg Tablet PO 1 tab Q4H PRN Administration Pain Rated 4-6 Albuterol/Ipratropium 3 ml 09/09/23 14:00 09/13/23 02:54 Ipratropium 0.5 Mg/Albuterol Sulfate 2.5 Mg Ampul.Neb 3 Ml INHALATION 3 ml Q6HRT ALETA Administration Alprazolam 25 mg 09/09/23 17:55 Alprazolam (*Crx) 0.5 Mg Tablet PO DAILY PRN anxiety Amoxicillin/Clavulanate Potassium 1 tablet 09/12/23 13:10 09/12/23 21:26 Amoxicillin/Clavulanate K 875-125 Mg Tab PO 09/14/23 21:00 1 tablet Q12HR ALETA Administration Aripiprazole 5 mg 09/09/23 21:00 09/12/23 21:26 Aripiprazole 5 Mg Tablet PO 5 mg HS ALETA Administration Azithromycin 500 mg 09/12/23 09:00 09/12/23 09:12 Azithromycin 250 Mg Tablet PO 09/13/23 09:01 500 mg DAILY ALETA Administration Cyanocobalamin 1,000 mcg 09/10/23 09:00 09/12/23 09:13 Cyanocobalamin 1,000 Mcg Tablet PO Not Given DAILY ALETA Famotidine 20 mg 09/09/23 21:00 09/12/23 21:26 Famotidine 20 Mg Tablet PO 20 mg QHS ALETA Administration Gabapentin 300 mg 09/09/23 22:00 09/13/23 06:30 Gabapentin 300 Mg Capsule PO 300 mg Q8HR ALETA Administration Ceftriaxone Sodium 1 gm in 50 mls @ 100 mls/hr 09/10/23 09:00 09/12/23 09:12 Rocephin 1 Gm/Ns 50 Ml IVPB Not Given Q24H ALETA Mirtazapine 30 mg 09/09/23 21:00 09/12/23 21:27 Mirtazapine 30 Mg Tablet PO 30 mg QHS ALETA Administration Ondansetron HCl 4 mg 09/09/23 17:53 Ondansetron Inj 4 Mg/2 Ml Vial IV PUSH Q6H PRN Nausea And Vomiting Ondansetron HCl 4 mg 09/13/23 04:41 09/13/23 04:59 Ondansetron Hcl Odt 4 Mg Tablet PO 4 mg Q6H PRN Administration Nausea And Vomiting Oxycodone HCl 5 mg 09/09/23 17:55 09/10/23 19:49 Oxycodone Hcl (*Crx) 5 Mg Tab Ir PO 5 mg Q6H PRN Administration pain 7-10 Senna/Docusate Sodium 1 tab 09/11/23 21:00 09/12/23 21:26 Senna/Docusate Sodium Tablet PO 1 tab HS ALETA Administration Vitamin D 2,000 units 09/10/23 09:00 09/12/23 09:13 Cholecalciferol 1,000 Units Tablet PO Not Given DAILY ALETA Vitamin E 400 unit 09/10/23 09:00 09/12/23 09:14 Vitamin E 400 Unit Capsule PO Not Given DAILY [facility] Radiology Results: ITS Impressions Chest X-Ray 09/09/23 11:14 IMPRESSION: 1. Dependent interstitial opacities in the bilateral lower lungs, right greater than left which could represent mild pulmonary edema, atelectasis or pneumonia. Modified Barium Swallow 09/10/23 10:38 IMPRESSION: Pharyngeal dysphagia including laryngeal penetration with uncontrolled thin liquids without aspiration. Please correlate with speech pathologist findings and specific feeding recommendations. Labs Labs: Laboratory Results - last 24 hr 09/10/23 09/12/23 09/13/23 06:25 04:55 04:55 WBC 8.6 RBC 3.89 L Hgb 11.4 L Hct 36.0 L MCV 92.5 MCH 29.3 MCHC 31.7 L RDW 13.7 Plt Count 338 MPV 9.5 Immature Gran % (Auto) 0.8 H Neut % (Auto) 78.6 H Lymph % (Auto) 8.7 L [place] % (Auto) 9.9 H Eos % (Auto) 1.7 Baso % (Auto) 0.3 Lymph # (Auto) 0.75 L [place] # (Auto) 0.9 H Eos # (Auto) 0.2 Baso # (Auto) 0.0 Abs Immat Gran (auto) 0.07 H Absolute Neuts (auto) 6.8 H Absolute Nucleated RBC 0.000 Nucleated RBC % 0.0 Sodium 139 Potassium 3.3 L Chloride 99 Carbon Dioxide 30 Anion Gap 10 BUN 6 L Creatinine 0.60 L Estim Creat Clear Calc 54 Estimated GFR > 60 Glucose 135 H Calcium 8.5 Total Bilirubin 0.7 AST 18 ALT 11 Alkaline Phosphatase 101 Total Protein 7.0 Albumin 3.4 L Procalcitonin 0.7 0.5 Urine Pneumococcal Ag Not detected Quality VTE Prophylaxis VTE prophylaxis: mechanical ordered
[2023-09-13] MEDS: AMOXICILLIN/CLAVULANATE K 875-125 MG TAB 1 TABLET PO (09:56)
[2023-09-13] MEDS: AZITHROMYCIN 250 MG TABLET 500 MG PO (09:56)
[2023-09-13] MEDS: CYANOCOBALAMIN 1,000 MCG TABLET 1000 MCG PO (09:56)
[2023-09-13] MEDS: CHOLECALCIFEROL 1,000 UNITS TABLET 2000 UNITS PO (09:56)
[2023-09-13] MEDS: VITAMIN E 400 UNIT CAPSULE PO (09:56)
[2023-09-13] MEDS: polyethylene glycoL 3350 17 GM POWD.PACK PO (12:59)
--- NOTE | 2023-09-13 14:35 | PCPTNOTE ---
Attempted to see patient for PT, however patient's declined therapy. Patient's reported he can tell patient does not really want to do therapy at this time and did not want to upset patient.
[2023-09-13] MEDS: BISACODYL 10 MG SUPPOSITORY RECTAL (15:00)
--- NOTE | 2023-09-13 16:47 | P.DS_ITS ---
DS: Admitting Diagnosis Discharge Date 09/12 Admitting Diagnosis Shortness of breath DS: Discharge Diagnosis Discharge Diagnosis (1) Sepsis: Code(s): A41.9 - Sepsis, unspecified organism Status: Acute Assessment and Plan: 09/09/23: * Initially meeting sepsis criteria with heart rate of 117, respiratory rate of 22, white blood cell count 17.9, with source of infection being pneumonia * Blood cultures were obtained and are pending * Patient started on Rocephin and azithromycin while in the ED * Lactic acid was 1.5 09/10/23: * Blood Cultures are still pending * Continue with Rocephin and azithromycin * White blood cell count down to 9.9, afebrile 09/10: * Blood cultures preliminary reading with NGTD * WBC 9.7 09/11: WBC normal * Procal added on * Switched to PO Augmentin and azithromycin 09/12: No change to plan of care. (2) Acute hypoxic respiratory failure: Code(s): J96.01 - Acute respiratory failure with hypoxia Status: Acute Assessment and Plan: 09/09/23: * Likely secondary to community-acquired pneumonia * Chest x-ray showed dependent interstitial opacities in the bilateral lower lung zones right greater than the left representing either mild pulmonary edema versus pneumonia * WBC 17.9, T-max 99.8? * Continue Rocephin and azithromycin * DuoNebs q.6 hour * Continue to wean O2 for sat greater than 92% * Respiratory panel was negative for influenza a and B, RSV, COVID * Will check urine Legionella, urine strep, mycoplasma 09/10/23: * Swallow study showing pharyngeal dysphagia including laryngeal penetration with uncontrolled thin liquids without aspiration, adequate function * [place] thick liquids and small bite size diet * Continue to wean O2 for sat greater than 92% * Urine strep, urine Legionella, and mycoplasma are pending * Continue DuoNeb * White blood cell count down to 9.9, afebrile * Continue Rocephin and azithromycin 09/10: * Patient 88% on room air this morning. Continue with 2 L nasal cannula. Wean O2 as tolerated. * Pep, incentive spirometry ordered. Unclear patient will be able to complete therapies. Daughter said she will try. * Continue IV Rocephin. Azithromycin can be changed to p.o.. * Continue DuoNeb 09/11: * Oxygen 92% on 2 L NC * May end up needing oxygen at discharge * Abx PO 09/12: * Continue pulmonary toilet * Up to chair as tolerated * Wean oxygen to maintain sats > 90% (3) Pneumonia: Code(s): J18.9 - Pneumonia, unspecified organism Status: Acute Assessment and Plan: See above plan of care (4) COPD (chronic obstructive pulmonary disease): Qualifiers: COPD type: unspecified COPD Qualified Code(s): J44.9 - Chronic obstructive pulmonary disease, unspecified Code(s): J44.9 - Chronic obstructive pulmonary disease, unspecified Status: Acute Assessment and Plan: See above plan of care (5) Bipolar affective disorder: Qualifiers: Active/Remission status: in partial remission Most recent bipolar episode type: mixed Qualified Code(s): F31.77 - Bipolar disorder, in partial remission, most recent episode mixed Code(s): F31.9 - Bipolar disorder, unspecified Status: Acute Assessment and Plan: 09/09/23: * Continue Abilify 09/10/23: * No change to current treatment plan (6) CVA (cerebral vascular accident): Code(s): I63.9 - Cerebral infarction, unspecified Status: Acute Assessment and Plan: 09/09/23: * Right-sided weakness and aphasia at baseline 09/10/23: * No change Plan Feeding: Heart healthy with soft and bite size with mildly thick liquids Analgesia: Tylenol Thromboembolic prophylaxis: SCDs Ulcer prophylaxis: Pepcid Bowel regimen: Senna Lines: Antibiotics: Augmentin and Zithromax Disposition: Patient presented with shortness of breath and complains of congestion and productive cough. Being treated for. She normally resides at home with her and her daughters come to the home to help with her care. Given her progressive weakness while hospitalized the daughters are hoping for SNF placement for further therapy. Patient has been accepted to [facility] in [place], awaiting insurance authorization. Advance Care Plan I have confirmed that the patient's Advanced Care Plan is present, code status is documented, or surrogate decision maker is listed in patient medical record.: Yes Medication Reconciliation I have utilized all available resources to obtain, update and review the patients current medications (includes all prescriptions, OTC, herbals, cannabis, and nutritional supplements).: Yes DS: Summary Hospital Course Reason for hospitalization: Pneumonia Hospital Course: his is a 78-year-old female with a significant past medical history of anxiety, COPD, depression, GERD, CVA with right-sided weakness and aphasia, vitamin B12 and vitamin-D deficiency who presents to the hospital for evaluation of shortness of breath/dyspnea. Patient was diagnosed with pneumonia and received IV antibiotics, oxygen, and nebulizer treatments. Her symptoms improved with this treatment her stay was uneventful. She was discharged to [facility] in [place] on 09/12 on 2 L of nasal cannula oxygen. She is completed her azithromycin treatment and has 1 more day of Augmentin. She will discharge with further PT, OT, speech therapy needs. Time Spent with Patient Time attestation: Total time spent providing and/or coordinating discharge services:80 Exam Narrative: General: Frail, appears stated age. HEENT: normocephalic, atraumatic. Mucous membranes moist. EOMI, PERRLA, bilateral sclera anicteric, no conjunctival injection. Neck supple without JVD, lymphadenopathy, or bruit. Respiratory: clear to auscultation bilaterally. No rales/rhonic/wheezes. Cardiovascular: Regular rate and rhythm, normal S1-S2 upon auscultation. No murmurs, rubs, or clicks. PMI is nondisplaced, capillary refill less than 3 second. Abdomen: Soft, round, no pulsatile masses, nondistended and nontender. No rebound, no guarding. No CVA tenderness, no hepatosplenomegaly. Bowel sounds present to all four quadrants. No high pitch or tinkling sounds, resonant to percussion. Extremities: No cyanosis, clubbing, or edema present. Pulses are palpable 2/2. Right-sided weakness and immobility. Right hand contraction. Neuro: Alert and baseline orientation per family.. PERRLA. Cranial nerves 2-12 intact without focal deficit. Skin: Warm, dry, and intact, without rash, erythema, or lesion. Lines: PIV Psych: no hallucinations, expressive aphasia, slurred speech DS: Data Data Completed and Pending Labs on day of discharge: Labs from last 24 hours 09/13/23 04:55 WBC 8.6 RBC 3.89 L Hgb 11.4 L Hct 36.0 L MCV 92.5 MCH 29.3 MCHC 31.7 L RDW 13.7 Plt Count 338 MPV 9.5 Immature Gran % (Auto) 0.8 H Neut % (Auto) 78.6 H Lymph % (Auto) 8.7 L [place] % (Auto) 9.9 H Eos % (Auto) 1.7 Baso % (Auto) 0.3 Lymph # (Auto) 0.75 L [place] # (Auto) 0.9 H Eos # (Auto) 0.2 Baso # (Auto) 0.0 Abs Immat Gran (auto) 0.07 H Absolute Neuts (auto) 6.8 H Absolute Nucleated RBC 0.000 Nucleated RBC % 0.0 Sodium 139 Potassium 3.3 L Chloride 99 Carbon Dioxide 30 Anion Gap 10 BUN 6 L Creatinine 0.60 L Estim Creat Clear Calc 54 Estimated GFR > 60 Glucose 135 H Calcium 8.5 Total Bilirubin 0.7 AST 18 ALT 11 Alkaline Phosphatase 101 Total Protein 7.0 Albumin 3.4 L Procalcitonin 0.5 Preliminary micro results at discharge 09/09/23 10:50 Blood Culture - Preliminary Blood 09/09/23 10:50 Blood Culture - Preliminary Blood Discharge Plan Discharge Attending physician on discharge: Ghassan Alston Consulting providers: Alejandra Cuellar Discharging Clinician: Chana Adair Anticipated Discharge Date/Time: 09/13/23 11:27 Patient Disposition: SNF Activity: july shower Diet: regular and other - see discharge instructions Discharge Instructions: You were admitted with shortness of breath and were found to have pneumonia. We treated you with IV antibiotics, IV fluids, and you did require oxygen. Overall you have improved, your lungs are clear, and your labs have normalized. You are still requiring a small amount of oxygen but I believe this will be weaned in time. You can safely discharge today for inpatient therapy with PT/OT/ST. You have one more day of Augmentin oral antibiotic for your pneumonia. You completed your last dose of azithromycin antibiotic today. Please continue to cough and deep breath to help clear secretions. Given your stroke history it is important to be at 90 degrees when eating or drinking and to remain upright for 30 minutes after a meal. The speech therapist here has recommend bite sized food with mildly thicken liquids. Should you have recurrence of shortness of breath, increased oxygen requirements, fever, chills, chest pain, or dizziness please return to a hospital to be evaluated. Please follow up with your PCP in the next 1-2 weeks given this hospitalization. Thank you for allowing us to care for you, Chana BRUSH Patient Instructions: Aspiration Pneumonia (DC), Community Acquired Pneumonia (DC) Stand Alone Forms: General Discharge Information Follow-up/Referrals: Esau Cardozo MD [Primary Care Provider] - Discharge Medications: New sennosides-docusate sodium [Senokot-S] 8.6-50 mg Tablet 1 tab-cap PO HS Qty: 30 0RF ipratropium-albuterol 0.5 mg-3 mg(2.5 mg base)/3 mL Solution For Nebulization 3 ml inhalation Q6HRT 7 Days Qty: 90 0RF amoxicillin-pot clavulanate 875-125 mg tablet 1 tablet PO Q12H Qty: 2 0RF Continued Dilaudid continuous epidural Patient Comments: 30 milligrams/cc through epidural pain pump clonidine continuous epidural Rx Instructions: 38 micrograms/cc through epidural pain pump cholecalciferol (vitamin D3) 50 mcg (2,000 unit) capsule 2,000 unit PO DAILY mirtazapine 30 mg tablet 30 mg PO QHS Qty: 90 3RF famotidine 20 mg tablet 20 mg PO QHS cyanocobalamin (vitamin B-12) [Vitamin B-12] 1,000 mcg tablet 1,000 mcg PO DAILY vitamin E (dl, acetate) 400 unit capsule 400 unit PO DAILY aripiprazole 10 mg tablet 10 mg PO HS Rx Instructions: 1/2 pill at HS (DME) nebulizers [Altera Nebulizer System] Misc See Rx Instructions .Route Qty: 1 0RF Rx Instructions: use q.i.d. p.r.n. gabapentin 300 mg capsule 300 mg PO TID Qty: 270 3RF Changed alprazolam [Xanax] 0.25 mg tablet 25 mg PO DAILY PRN (Reason: anxiety) Qty: 1 0RF oxycodone 5 mg tablet 5 mg PO Q6H PRN (Reason: pain) Qty: 1 0RF Date of admission: 09/09/23 15:15 Primary Care Provider: Esau Cardozo Admitting Provider: Stanislav Julio Attending physician on admission: Chana Adair Condition: Improved Quality VTE Prophylaxis VTE prophylaxis: mechanical ordered
[2023-09-26 02:23] LABS: Legionella pneumophila Ag Ur NOT DETECTED
== END 2023-09-13 18:18 | DRG 194 ==
LOC: ANHED 10:29 → ANHIMU 13:17 → ANH2MED 09-10 15:45
PROVIDERS: Nurse Practitioner Acute Care; Admitting Provider Internal Medicine; Emergency Provider Emergency Medicine; PCP Family Medicine; Visit Provider Nurse Practitioner Acute Care
DX: J18.9 Pneumonia, unspecified organism (principal); I69.351 Hemiplegia and hemiparesis following cerebral infarction affecting right dominant side; J44.0 Chronic obstructive pulmonary disease with (acute) lower respiratory infection; E53.8 Deficiency of other specified B group vitamins; E55.9 Vitamin D deficiency, unspecified; F41.9 Anxiety disorder, unspecified; F31.9 Bipolar disorder, unspecified; I69.320 Aphasia following cerebral infarction; K59.09 Other constipation; K21.9 Gastro-esophageal reflux disease without esophagitis; Z20.822 Contact with and (suspected) exposure to COVID-19; Z86.16 Personal history of COVID-19; Z87.891 Personal history of nicotine dependence
CPT/HCPCS: 36415; 36600; 71046; 80053; 82375; 82805; 83050; 83605; 84145; 85025; 86738; 87040; 87449; 87637; 87899; 92526; 92611; 93005; 94640; 94667; 96365; 96367; 97110; 97161; 97166; 97530; 99285; A9270; G0378; J0456; J0696; J7030